=== PATIENT | female | born 1950 | race Caucasian/White ===

== ENCOUNTER 2017-02-07 22:30 | Observation (INO) | payer MEDICARE ==
--- OUTSIDE RECORDS SUMMARY | 2017-02-07 22:33 | XMS | Clinical Summary ---
:1950 Author Organization [facility] Address [address] [place] [address] Phone Care Team Providers Name Role Phone , Primary Care Provider Unavailable Allergies Not on File Current Medications Not on file Active Problems Not on file Social History Tobacco Use Types Packs/Day Years Used Date Never Assessed Sex Assigned at Date Recorded Not on file Last Filed Vital Signs Not on file Plan of Treatment Not on file Results Not on filefrom Last 3 Months
[2017-02-07 23:54] LABS: Troponin I 0.022 ng/mL (< 0.028)
[2017-02-07 23:57] LABS: Acetaminophen Less than 6.0 mcg/mL (10.0-30.0); Salicylate Less than 8.0 mg/dL (15.0-30.0)
[2017-02-08] LABS: Amphetamine Not Detected (NotDetected); Methadone Not Detected (NotDetected); Methamphetamine Not Detected (NotDetected)
[2017-02-08] MEDS ORDERED: Ondansetron ODT 4 MG TAB SL PRN (02:59)
[2017-02-08] MEDS ORDERED: Ondansetron HCl/PF 4 MG/2 ML Vial IVP PRN (02:59)
[2017-02-08 03:43] VITALS: BMI 33.8
[2017-02-08] MEDS ORDERED: Aspirin 325 mg Enteric Coated Tablet PO SCH (09:00)
[2017-02-08] MEDS ORDERED: Dextrose 50% Abboject 50 ML SYRINGE SLOW IVP PRN (09:59)
[2017-02-08] MEDS ORDERED: Loratadine 10 MG TAB PO PRN (09:59)
[2017-02-08] MEDS ORDERED: Famotidine 20 MG TAB PO PRN (09:59)
[2017-02-08] MEDS ORDERED: Dextrose 5% in Water 1,000 ML IV PRN (09:59)
[2017-02-08] MEDS ORDERED: HumaLOG 300 UNITS/3 ML VIAL SC PRN (09:59)
[2017-02-08] MEDS ORDERED: Acetaminophen 325 MG TAB PO PRN (09:59)
[2017-02-08 11:34] VITALS: TEMP 98.7
[2017-02-08] MEDS ORDERED: Metoprolol Tartrate 25 MG TAB PO SCH ×2 (11:45→21:00)
[2017-02-08] MEDS ORDERED: Anastrozole 1 MG TAB PO SCH (11:45)
--- NOTE | 2017-02-08 13:36 | HP ---
CHIEF COMPLAINT: Altered mental state. HISTORY OF PRESENT ILLNESS: This is a 66-year-old pleasant lady who came to the emergency room at [facility] for evaluation of lethargy. The patient's family at that point said that the patient wa s unresponsive. The blood sugar at that time was 120, there were no acute findings on the CT scan o f the head. The patient was transferred out here for further evaluation and treatment during the [facility]. I saw the patient in the morning and she is awake, alert, oriented, and knows what happened on her routine and answers and all questions appropriately. She is feeling fine right now. She does remember that yesterday on the , after she finished her activity at the center she came back bassem e and then took a nap and she vaguely remembers somebody trying to wake her, but she said that she w as sleepy. She right now does not complain of any nausea, vomiting, fever, chills, headache. Compl ains of some left ear discharge on and off. PAST MEDICAL HISTORY: Significant for hypertension, hyperlipidemia, diabetes, neuropathy, depressio n, coronary artery disease, right breast cancer status post mastectomy and radiation, osteoporosis. PAST SURGICAL HISTORY: Cholecystectomy, appendectomy, hysterectomy, x3, status post CABG, lumpectomy, right mastectomy, tonsillectomy. SOCIAL HISTORY: Denies alcohol, tobacco or drugs. Lives in [place] with a niece. ALLERGIES: Allergy to CODEINE, but the patient is able to take Tylenol with codeine and is able to take hydrocodone or [place]. MEDICATIONS: Please see MAR. FAMILY HISTORY: Negative for diabetes and hypertension. REVIEW OF SYSTEMS: Significant for no fever, no chills, altered mental state and no headache, no ap parent hearing loss, some left ear discharge. No chest pain, no shortness of breath, no cough, no n ausea, vomiting, diarrhea, no dysuria, no polyuria, some memory and mood changes. History of deliri um in the past, anxiety in the past, but no neck pain. OBJECTIVE: VITAL SIGNS: The patient's blood pressure is 148/65, afebrile, pulse is 77, respirations 18. GENERAL: The patient is lying in bed right now alert, awake, oriented, in no apparent distress. HEENT: Atraumatic, normocephalic. Pupils equally round, react to light. Extraocular movements int act. Mucous membranes moist. NECK: No JVD. CHEST: Midline scar seen. Respiratory field, breath sounds heard. No rales or rhonchi. HEART: S1, S2. No murmurs or gallops. ABDOMEN: Soft, obese. EXTREMITIES: No cyanosis, clubbing, edema. Distal pulses present. NEUROLOGIC: Alert, awake, oriented. No cranial deficits. No sensorimotor deficits. MUSCULOSKELETAL: The patient complains of left hip pain. LABORATORY DATA: WBC count is 6.3, hemoglobin is 11, bands are elevated at 24%, neutrophils of 82%. Sodium is 142, potassium is 4, creatinine is 1.5, glucose is 120. Lactic acid 0.8. BNP is 322, L DL is 51. Urine shows no signs of infection, nitrate negative, and UDS is positive only for tricyclics. ASSESSMENT AND PLAN: 1. Altered mental state, resolved. Exact etiology unknown. The patient does not complain of any p ain in the left ear, some on and off discharge. Examination did not reveal any signs of otitis medi a. Tympanic membrane was, however, not clearly visualized. We will empirically treat with amoxicil minh. I will speak to the niece and try to get some more history. 2. Left hip pain secondary to left acetabular fracture. The patient has an orthopedic appointment tomorrow. 3. Diabetes. We will put her on insulin sliding scale. 4. Neuropathy. We will continue home medications. 5. History of breast cancer status post mastectomy and radiation, stable. 6. Hypertension, stable. 7. Coronary artery disease status post coronary artery bypass graft, stable. 8. Vague history of anxiety and delirium and psychosis in the past. We will monitor the patient fo r that. I will follow the labs. CT scan of the head was negative. SCDs for deep venous thrombosis prophylaxis.
[2017-02-08 14:07] VITALS: BP 166/77
--- NOTE | 2017-02-08 19:02 | DIS ---
DATE OF ADMISSION: 02/08/2017 DATE OF DISCHARGE: 02/08/2017 ADMITTING DIAGNOSES: 1. Altered mental state, resolved. 2. Chronic infection of the left ear with some on and off discharge. 3. Diabetes. 4. Hypertension. 5. Left acetabular fracture giving left pain. 6. Breast cancer, status post mastectomy and radiation. 7. Coronary artery disease, status post coronary artery bypass grafting. 8. Neuropathy. 9. History of anxiety. DISCHARGE MEDICATIONS: The patient's discharge medications are the same as admitting medications pl us Augmentin 500 mg p.o. b.i.d. for 7 days. BRIEF HOSPITAL COURSE: This is a 66-year-old pleasant lady, who was apparently in her usual state o f health, was brought to [facility] because of altered mental state. They did a CT scan there, which was negative. They decided to transfer the patient to hospital, and during the transfer, the patient wake up, and altered mental state had resolved. I spoke to the niece in detail, and she thought that probably it was like a sleep apneic episode, and she could not wake her up from that. The patient right now was stable overnight. All her labs were good. I evaluated the patient, and because of the transient bandemia and left ear discharge, I am going to treat her with Augmentin for chronic ear infection. The patient is right now medically stable to be discharged and transported back to home with home health. She is asked to follow up with the ENT, orthopedic, PCP as an outpat ient. She is also advised to have a sleep study as an outpatient. She understands all this, the ni deven understands all this. She is asked to come back to the emergency room in case symptoms recur. Total time for this discharge took 35 minutes.
[2017-02-08] MEDS ORDERED: Amoxicillin/Potassium Clav 500 MG TAB PO SCH (21:00)
[2017-02-08] MEDS ORDERED: Atorvastatin Calcium 40 MG TAB PO SCH (21:00)
[2017-02-08] MEDS ORDERED: Aspirin 81 mg Enteric Coated Tablet PO SCH (21:00)
[2017-02-09] MEDS ORDERED: Anastrozole 1 MG TAB PO SCH (09:00)
== END 2017-02-08 13:57 | disposition home or self-care (01) ==
LOC: ERS 22:30 → 2SE 02-08 02:00
PROVIDERS: ADMIT Internal Medicine; ATTEND Internal Medicine
DX: R41.82 Altered mental status, unspecified (principal); H66.92 Otitis media, unspecified, left ear; E11.40 Type 2 diabetes mellitus with diabetic neuropathy, unspecified; I10 Essential (primary) hypertension; S32.402A Unspecified fracture of left acetabulum, initial encounter for closed fracture; I25.10 Atherosclerotic heart disease of native coronary artery without angina pectoris; F41.9 Anxiety disorder, unspecified; F32.9 Major depressive disorder, single episode, unspecified; E78.5 Hyperlipidemia, unspecified; Z88.5 Allergy status to narcotic agent; Z79.4 Long term (current) use of insulin; Z79.899 Other long term (current) drug therapy; Z90.11 Acquired absence of right breast and nipple; Z90.89 Acquired absence of other organs; Z98.890 Other specified postprocedural states; Z95.1 Presence of aortocoronary bypass graft; Z85.3 Personal history of malignant neoplasm of breast; Z92.3 Personal history of irradiation
CPT/HCPCS: 80306; 80307; 82962; 84443; 84484; 93005; 96360; 96361 ×2; 96374; 99285; G0378; 36416; A4216; J0360

== ENCOUNTER 2017-05-25 13:55 | Outpatient (CLI) | payer MEDICARE ==
--- NOTE | 2017-05-25 16:38 | MRI ---
MRI BRAIN WITH AND WITHOUT CONTRAST MRI AIC WITH AND WITHOUT CONTRAST: CLINICAL HISTORY: Asymmetric sensorineural hearing loss. FINDINGS: Ventricular system is normal in size. There is no evidence of acute territorial infarction, intracra nial mass effect, or midline shift. No evidence of pathologic enhancement or mass of either CP angle cistern or along the course of the 7th/8th cranial nerves. Minimal chronic microvascular ischemic d isease is present. Imaged skull base flow voids are patent. There is mild right mastoid fluid. IMPRESSION: 1. No pathologic enhancement or mass along the 7th/8th cranial nerve complex, bilaterally. 2. No acute intracranial abnormality. 3. Minimal chronic microvascular ischemic disease. 4. Mild right mastoid effusion. POS: [facility]
[2017-05-25] MEDS ORDERED: Gadobenate Dimeglumine 529 MG/1 ML (20ML VIAL) ONE (16:49)
== END 2017-05-25 13:56 | disposition home or self-care (01) ==
LOC: MRI 13:55
PROVIDERS: ATTEND Nurse Practitioner Family
DX: H90.5 Unspecified sensorineural hearing loss (principal); H74.8X1 Other specified disorders of right middle ear and mastoid
CPT/HCPCS: 70553; A9579

== ENCOUNTER 2017-06-08 12:54 | Outpatient (CLI) | payer MEDICARE | END 2017-06-08 12:55 | disposition home or self-care (01) | LOC: BICULT 12:54 | PROVIDERS: ATTEND Internal Medicine Nephrology | DX: N18.2 Chronic kidney disease, stage 2 (mild) (principal); N17.9 Acute kidney failure, unspecified; N39.0 Urinary tract infection, site not specified; R10.9 Unspecified abdominal pain | CPT/HCPCS: 76770 ==

== ENCOUNTER 2017-06-22 13:26 | Outpatient (CLI) | payer MEDICARE ==
[2017-06-22 14:46] LABS: #Eosinphils 0.2 thou/uL (0.0-0.7); #Lymphocytes 1.3 thou/uL (1.20-3.40); #Monocytes 0.3 thou/uL (0.11-0.59); #Neutrophils 3.9 thou/uL (1.40-6.50); %Basophils 0.4 % (0.0-1.0); %Eosinophils 3.1 % (0.0-10.0); %Lymphocytes 23.1 % (21.0-51.0); %Monocytes 5.9 % (0.0-10.0); %Neutrophils 67.5 % (42.0-75.0); Hemoglobin 11.8 g/dL (12.0-16.0); Mean Corpuscular HGB CONC 32.2 g/dL (32.0-36.0); Mean Corpuscular Hemoglobin 29.1 pg (27.0-31.0); Mean Corpuscular Volume 90.2 fl (81.0-99.0); Mean Platelet Volume 6.5 fL (7.4-10.4); Platelet Count 267 thou/uL (130-400); RBC Distribution Width 12.7 % (11.5-14.5); Red Blood Cell (RBC) Count 4.06 mill/uL (4.20-5.40); White Blood Cell (WBC) Count 5.7 thou/uL (4.8-10.8)
[2017-06-22 14:52] LABS: PTT 34.9 SEC (22.9-36.1)
[2017-06-22 15:08] LABS: ALT (SGPT) 12 U/L (8-55); AST (SGOT) 14 U/L (5-34); Albumin 3.9 g/dL (3.4-4.8); Alkaline Phosphatase 57 U/L (40-150); Anion Gap 15 mmol/L (10-20); BUN (Urea Nitrogen) 24 mg/dL (9.8-20.1); Bilirubin, Total 0.4 mg/dL (0.2-1.2); Calc. Creatinine Clearance 0 mL/min (70-130); Calcium 9.5 mg/dL (7.8-10.44); Carbon Dioxide 27 mmol/L (23-31); Chloride 103 mmol/L (98-107); Estimated GFR-MDRD 45; Globulin 2.8 g/dL (2.4-3.5); Glucose 90 mg/dL (80-115); Protein, Total 6.7 g/dL (6.0-8.3); Sodium 141 mmol/L (136-145)
--- NOTE | 2017-06-22 21:03 | EKG ---
Test Reason : Blood Pressure : / mmHG Vent. Rate : 077 BPM Atrial Rate : 077 BPM P-R Int : 156 ms QRS Dur : 086 ms QT Int : 398 ms P-R-T Axes : 037 -21 006 degrees QTc Int : 450 ms Normal sinus rhythm Minimal voltage criteria for LVH, may be normal variant Septal infarct (cited on or before 06-MAY-2016) Abnormal ECG When compared with ECG of 07-FEB-2017 23:29, T wave inversion no longer evident in Lateral leads Confirmed by ALAINA CAMEJO ([id number]) on 06/22/2017 9:03:07 PM Referred By: CRUZ Confirmed By:ALAINA CAMEJO
== END 2017-06-22 13:27 | disposition home or self-care (01) ==
LOC: LABBT 13:26
PROVIDERS: ATTEND Internal Medicine Cardiovascular Disease
DX: Z01.818 Encounter for other preprocedural examination (principal); I25.119 Atherosclerotic heart disease of native coronary artery with unspecified angina pectoris
CPT/HCPCS: 80053; 85025; 85610; 85730; 93005; 93010

== ENCOUNTER 2017-06-24 05:50 | Day surgery (SDC) | payer MEDICARE ==
[2017-06-22 13:41] VITALS: BMI 31.4
[2017-06-24 07:35] LABS: Cardiac Risk 3.1 (Less than 4.5)
[2017-06-24] MEDS ORDERED: Fentanyl 100 MCG/2 ML VIAL ONE (07:38)
[2017-06-24] MEDS ORDERED: Midazolam HCl 2 mg/2 ml Vial ONE (07:38)
[2017-06-24] MEDS ORDERED: Iopamidol 370 76% 50 ML VIAL FS ONE (17:04)
[2017-06-24] MEDS ORDERED: Iopamidol 370 76% 100 ML VIAL ONE (17:04)
== END 2017-06-24 12:38 | disposition home or self-care (01) ==
LOC: CCL 05:50
PROVIDERS: ATTEND Internal Medicine Cardiovascular Disease
DX: I25.119 Atherosclerotic heart disease of native coronary artery with unspecified angina pectoris (principal); E11.22 Type 2 diabetes mellitus with diabetic chronic kidney disease; I13.0 Hypertensive heart and chronic kidney disease with heart failure and stage 1 through stage 4 chronic kidney disease, or unspecified chronic kidney disease; N18.3 Chronic kidney disease, stage 3 (moderate); I50.30 Unspecified diastolic (congestive) heart failure; E78.5 Hyperlipidemia, unspecified; G47.33 Obstructive sleep apnea (adult) (pediatric); M81.0 Age-related osteoporosis without current pathological fracture; F31.9 Bipolar disorder, unspecified; E11.40 Type 2 diabetes mellitus with diabetic neuropathy, unspecified; Z99.89 Dependence on other enabling machines and devices; Z79.4 Long term (current) use of insulin; Z79.82 Long term (current) use of aspirin; Z79.899 Other long term (current) drug therapy; Z88.5 Allergy status to narcotic agent; Z95.1 Presence of aortocoronary bypass graft; Z90.11 Acquired absence of right breast and nipple; Z90.49 Acquired absence of other specified parts of digestive tract; Z90.710 Acquired absence of both cervix and uterus; Z90.89 Acquired absence of other organs; Z98.890 Other specified postprocedural states; Z98.891 History of uterine scar from previous surgery; Z92.3 Personal history of irradiation; Z85.3 Personal history of malignant neoplasm of breast
CPT/HCPCS: 80061; 82962; 93455; C1769; 36416; 99152; 99153; J1644; J2250; J3010

== ENCOUNTER 2017-07-14 06:27 | Day surgery (SDC) | payer MEDICARE ==
[2017-07-13 14:10] VITALS: BMI 32.0
[~2017-07-14 06:27] MED LIST: Cyclopentolate 1% Opth Drop 2 ML BOT FS SCH; EPINEPHrine 0.3 MG, Dextrose 50% 3 ML in Ophthalmic Irrigation Solution 500 ML FS SCH; Phenylephrine 2.5% Ophth Soln 5 ML BOT FS SCH
[2017-07-14] MEDS ORDERED: Cyclopentolate 1% Opth Drop 2 ML BOT ONE ×2 (06:30)
[2017-07-14] MEDS ORDERED: Phenylephrine 2.5% Ophth Soln 5 ML BOT ONE (06:31)
[2017-07-14] MEDS ORDERED: Fentanyl 100 MCG/2 ML VIAL ONE (07:52)
[2017-07-14] MEDS ORDERED: Midazolam HCl 2 mg/2 ml Vial ONE (07:54)
[2017-07-14] MEDS ORDERED: Diprivan 20 ML ONE (07:55)
--- NOTE | 2017-07-14 09:57 | OP ---
DATE OF PROCEDURE: 07/14/2017 PREOPERATIVE DIAGNOSIS: Epiretinal membrane, vitreous hemorrhage, left eye. POSTOPERATIVE DIAGNOSIS: Epiretinal membrane, vitreous hemorrhage, left eye. PROCEDURE: Pars plana vitrectomy and membrane peel, panretinal photocoagulation, left eye. SURGEON: Dr. All Fagan ANESTHESIA: Local with monitored anesthesia care. COMPLICATIONS: None. PROCEDURE IN DETAIL: The patient was identified in the preoperative holding area. Appropriate conse nt for planned surgical procedure on the left eye been obtained. The patient was transported to the operative suite. Appropriate monitoring was established. Local anesthesia was obtained using retrob ulbar and modified Van Lint lid block using 50:50 mixture of 4% lidocaine, 0.75% bupivacaine. The pa tient was prepped and draped in the usual sterile manner for ophthalmic surgery on the left eye. Lid speculum was placed in the left eye. The 25-gauge trocars placed in conjunctiva and sclera supratem porally, inferotemporally, and supranasally. Infusion line was placed inferotemporally. Light pipe and vitreous cutter were inserted into the eye. Core vitrectomy was performed. Attention was turned to the posterior pole where there was a stalk of proliferans coming up from the nerve. This was pee led from the macula retinal surface and removed from the eye. Other residual membranes were removed. Olvera retinal photocoagulation was placed into all non-macular areas of the retina. No holes, breaks or tears were identified. Trocars were removed and eye was noted to retain pressure well. Retrobul bar Kenalog and specimens placed. Atropine and antibiotic ointment were placed, and the eye was patc hed and shielded. The patient was taken to the postoperative recovery unit in good condition having suffered no immediate complications. DISCHARGE INSTRUCTIONS: The patient was instructed to keep patch and shield on, avoid lifting or anisha ding, and follow up in the morning with Dr. Fagan.
== END 2017-07-14 09:30 | disposition home or self-care (01) ==
LOC: SDC 06:27
PROVIDERS: ATTEND Ophthalmology Retina Specialist
PROC: 08T53ZZ Resection of Left Vitreous, Percutaneous Approach (ICD-10-PCS; principal; 2017-07-14)
PROC: 08QF3ZZ Repair Left Retina, Percutaneous Approach (ICD-10-PCS; 2017-07-14)
PROC: 08NF3ZZ Release Left Retina, Percutaneous Approach (ICD-10-PCS; 2017-07-14)
DX: H43.12 Vitreous hemorrhage, left eye (principal); H35.372 Puckering of macula, left eye; Z88.5 Allergy status to narcotic agent; Z79.4 Long term (current) use of insulin; Z79.83 Long term (current) use of bisphosphonates; Z79.82 Long term (current) use of aspirin; Z79.899 Other long term (current) drug therapy
CPT/HCPCS: 36416; J0171; J2250; J2704; J3010

== ENCOUNTER 2017-11-16 23:37 | Observation (INO) | payer MEDICARE ==
[~2017-11-16 23:37] MED LIST changes: -Cyclopentolate 1% Opth Drop 2 ML BOT FS SCH; -EPINEPHrine 0.3 MG, Dextrose 50% 3 ML in Ophthalmic Irrigation Solution 500 ML FS SCH; +ISOVUE-370 76%-LOCM 1 ML ONE; -Phenylephrine 2.5% Ophth Soln 5 ML BOT FS SCH
[2017-11-17 01:50] LABS: Troponin I 0.011 ng/mL (< 0.028)
[2017-11-17] MEDS ORDERED: Acetaminophen 325 MG TAB PO PRN (03:28)
[2017-11-17] MEDS ORDERED: Ondansetron HCl/PF 4 MG/2 ML Vial IVP PRN (03:28)
[2017-11-17] MEDS ORDERED: Lorazepam 1 MG TAB PO PRN (03:29)
[2017-11-17] MEDS ORDERED: Furosemide 20 MG TAB PO SCH (03:30)
[2017-11-17] MEDS ORDERED: guaiFENesin ER 600 MG TAB PO SCH (03:30)
[2017-11-17] MEDS ORDERED: HYDROcodone/Acetaminophen 10/325 mg Tablet PO SCH (03:30)
[2017-11-17] MEDS ORDERED: tiZANidine HCl 4 MG TAB PO SCH (03:30)
[2017-11-17] MEDS ORDERED: cloNIDine 0.1 MG TAB PO SCH (03:30)
[2017-11-17] MEDS ORDERED: Zolpidem Tartrate 5 MG TAB PO SCH (03:30)
[2017-11-17 04:47] LABS: #Basophils 0.1 thou/uL (0.0-0.2); #Eosinphils 0.2 thou/uL (0.0-0.7); #Lymphocytes 1.3 thou/uL (1.20-3.40); #Monocytes 0.5 thou/uL (0.11-0.59); #Neutrophils 2.7 thou/uL (1.40-6.50); %Basophils 1.1 % (0.0-1.0); %Eosinophils 4.5 % (0.0-10.0); %Monocytes 10.1 % (0.0-10.0); %Neutrophils 57.3 % (42.0-75.0); Hemoglobin 10.5 g/dL (12.0-16.0); Mean Corpuscular HGB CONC 33.9 g/dL (32.0-36.0); Mean Corpuscular Hemoglobin 30.7 pg (27.0-31.0); Mean Corpuscular Volume 90.4 fL (78.0-98.0); Mean Platelet Volume 6.1 fL (7.4-10.4); Platelet Count 172 thou/uL (130-400); RBC Distribution Width 11.8 % (11.5-14.5); Red Blood Cell (RBC) Count 3.42 mill/uL (4.20-5.40); White Blood Cell (WBC) Count 4.7 thou/uL (4.8-10.8)
[2017-11-17 05:05] LABS: Anion Gap 12 mmol/L (10-20); BUN (Urea Nitrogen) 43 mg/dL (9.8-20.1); Calc. Creatinine Clearance 0 mL/min (70-130); Calcium 9.4 mg/dL (7.8-10.44); Carbon Dioxide 29 mmol/L (23-31); Chloride 104 mmol/L (98-107); Estimated GFR-MDRD 36; Glucose 111 mg/dL (80-115); Potassium 4.6 mmol/L (3.5-5.1); Sodium 140 mmol/L (136-145); Troponin I 0.014 ng/mL (< 0.028)
[2017-11-17 07:41] LABS: Troponin I Less than 0.010 ng/mL (< 0.028)
[2017-11-17 08:02] VITALS: BMI 35.4
--- NOTE | 2017-11-17 08:07 | ULT ---
CAROTID DUPLEX SONOGRAM: HISTORY: Syncope. Vascular disease. FINDINGS: RIGHT: Scattered plaque. Color and spectral Doppler evaluation, peak systolic velocity of 82 cm/s, and IC t o CC ratio 1.3 suggests no hemodynamically significant stenosis within the extracranial right ICA. A ntegrade flow within the vertebral artery. LEFT: Scattered plaque. Color and spectral Doppler evaluation, peak systolic velocity of 89 cm/s, and IC t o CC ratio of 1.3 suggests no hemodynamically significant stenosis within the extracranial left ICA. Antegrade flow within the vertebral artery. IMPRESSION: Atherosclerosis. No sonographic evidence of significant extracranial internal carotid artery stenosi s. POS: [facility]
--- NOTE | 2017-11-17 08:36 | CT ---
PRELIMINARY REPORT/[facility]/EMERGENTY AFTER-HOURS PROCEDURE CT Angiography Chest With Intravenous Contrast CLINICAL HISTORY: 67 years old, female; Signs and symptoms; Other: Syncope; Prior surgery; Patient HX: Er8; 67f present s for the evaluation of syncope. Patient was sitting at rest and syncopized for 3-5 minutes without p rodromal event. Patient recently had aicd placed on tuesday. Denies chest pain and SOB. TECHNIQUE: Axial computed tomographic angiography images of the chest with intravenous contrast using CT angiogr aphy protocol. MIP reconstructed images were created and reviewed. COMPARISON: No relevant prior studies available. FINDINGS: Tubes, lines and devices: There is a left chest wall pacemaker device. Pulmonary arteries: No visible acute pulmonary embolism. Aorta: Normal. No aortic aneurysm. No aortic dissection. Lungs: There is likely pleural and parenchymal scarring in the right upper lobe anteriorly and also i nvolving the right middle lobe. There is additional bibasilar atelectatic change or scarring, but can not exclude a component of pneumonitis in the left lower lobe base. Pleural space: Normal. No pneumothorax. No pleural effusion. Heart: There are postoperative changes of prior cardiac surgery. Bones/joints: There are degenerative changes of the spine. There is likely chronic compression fractu re involving the T11 vertebral body. Soft tissues: Unremarkable. Lymph nodes: Unremarkable. No enlarged lymph nodes. Adrenals: There is a likely lipid rich left adrenal adenoma measuring 1.3 cm diameter. IMPRESSION: 1. There is likely pleural and parenchymal scarring in the right upper lobe anteriorly and also invol ving the right middle lobe. There is additional bibasilar atelectatic change or scarring, but cannot exclude a component of pneumonitis in the left lower lobe base. 2. No visible acute pulmonary embolism. Thank you for allowing us to participate in the care of your patient. Dictated and Authenticated by: Orion Lorenzo MD 11/17/2017 1:29 AM Central Time ([place] & [place]) FINAL REPORT CT ARTERIOGRAM CHEST WITH IV CONTRAST AND 3D MIP IMAGING PERFORMED ON AN EMERGENCY BASIS: Date: 11/17/17 Time: 0104 hours HISTORY: Syncope. Dyspnea. COMPARISON: 01/06/17. FINDINGS: Findings agree with the preliminary report by Antoinette. No CT evidence of pulmonary embolus. Scarring at the left base has progressed slightly since the prior exam. Other chronic-type findings are stable. L eft adrenal adenoma is partially visualized. POS: [facility]
[2017-11-17] MEDS ORDERED: Non-Formulary Item 1 EACH (Insulin Detemir 100 Units/Ml [Levemir] 20 UNITS) SQ SCH (09:00)
[2017-11-17] MEDS ORDERED: Insulin Glargine 20 UNITS in Pre-Filled Syringe 1 EACH SC SCH (09:00)
[2017-11-17] MEDS: Anastrozole 1 MG TAB PO SCH (10:29)
[2017-11-17] MEDS: Docusate 100 MG CAP PO SCH (10:29)
[2017-11-17] MEDS: Aspirin 81 mg Enteric Coated Tablet PO SCH (10:29)
[2017-11-17] MEDS: Gabapentin 400 MG CAP PO SCH ×3 (10:30→21:33)
[2017-11-17] MEDS: Enoxaparin Sodium 40 MG/0.4 ML SYRINGE SC SCH (10:53)
[2017-11-17] MEDS: Sodium Chloride 0.9% 1,000 ML IV SCH (10:56)
[2017-11-17] MEDS: Ferrous Sulfate 325 MG TAB PO SCH (12:20)
[2017-11-17] MEDS: HYDROcodone/Acetaminophen 10/325 mg Tablet PO PRN ×3 (12:44→23:23)
[2017-11-17] MEDS ORDERED: Non-Formulary Item 1 EACH (Cephalexin [Keflex] 500 MG) PO SCH (13:00)
--- NOTE | 2017-11-17 13:16 | HP ---
REASON FOR ADMISSION: Syncope. HISTORY OF PRESENT ILLNESS: The patient states she was sitting and watching TV for almost an hour. She tried to get up to go eat dinner when she apparently passed out for 10-15 minutes. When she woke up, EMS were all over the place. This morning, she is feeling weak. No complaints of chest pain, p alpitation, PND or orthopnea. No complaints of fever, cough, or expectoration. She states she had A ICD placed on Tuesday by Dr. Fischer for low EF of 25%-30%. No complaints of diarrhea. She normally use s a walker to ambulate inside the house and uses wheelchair to go beyond that. She lives with her ni deven. PAST MEDICAL AND SURGICAL HISTORY: History of coronary artery disease with prior CABG x3 done in 201 2 at [facility] in [place], AICD placed on Tuesday by Dr. Fischer for EF of 25%-32%, hyp ertension, history of breast cancer with right mastectomy, diabetes mellitus type 2, chronic anemia, CKD stage 2-3. CURRENT MEDICATIONS: Arimidex 1 mg p.o. daily, aspirin 81 mg p.o. daily, Lipitor 40 mg p.o. at bedti me, Keflex 500 mg p.o. 4 times daily, Flexeril 10 mg p.o. at bedtime, Cymbalta 60 mg p.o. daily, Lasi x 40 mg p.o. daily, gabapentin 800 mg p.o. 3 times daily, [place] 10/325 mg 1 tab p.o. q.4 hours p.r.n. , hydroxyzine 50 mg p.o. at bedtime, Levemir 25 units subcu daily and 20 units subcu at bedtime, Topr ol-XL 25 mg at bedtime, Protonix 40 mg daily, Risperdal 1 mg p.o. at bedtime, Janumet 1 tab twice lance ly. ALLERGIES: CODEINE. PERSONAL HISTORY: Does not abuse alcohol or drugs. No history of smoking. FAMILY HISTORY: Mother of COPD and its complications at the age of 54 years. She does not know much about her father. Patient has 2 grown boys. She lives with her niece. CODE STATUS: FULL. Power of collections attorney, Ms. Marylin Clements and that is her niece. REVIEW OF SYSTEMS: The following complete review of systems was negative, unless otherwise mentioned in the HPI or below: Constitutional: Weight loss or gain, ability to conduct usual activities. Skin: Rash, itching. Eyes: Double vision, pain. ENT/Mouth: Nose bleeding, neck stiffness, pain, tenderness. Cardiovascular: Palpitations, dyspnea on exertion, orthopnea. Respiratory: Shortness of breath, wheezing, cough, hemoptysis, fever or night sweats. Gastrointestinal: Poor appetite, abdominal pain, heartburn, nausea, vomiting, constipation, or diarr hea. Genitourinary: Urgency, frequency, dysuria, nocturia. Musculoskeletal: Pain, swelling. Neurologic/Psychiatric: Anxiety, depression. Allergy/Immunologic: Skin rash, bleeding tendency. PHYSICAL EXAMINATION: GENERAL: The patient is a 67-year-old female who is currently not in any acute distress. VITAL SIGNS: Blood pressure 164/70, pulse 74 per minute, respiratory rate 16 per minute, temperature 97.6 degrees Fahrenheit, saturating 96% on room air. NECK: Supple, no elevated JVD. HEENT: Eyes, extraocular muscles intact. Pupils reacting to light. Oral cavity mucous membranes ar e dry. No exudates or congestion. CARDIOVASCULAR: S1, S2 heard, regular rhythm. RESPIRATORY: Air entry 2+ bilateral. No rales or rhonchi. ABDOMEN: Soft, bowel sounds heard. No tenderness, rigidity or guarding. EXTREMITIES: No peripheral edema or calf tenderness. VASCULAR SYSTEM: Peripheral pulses 1+ bilateral, no ischemic ulcerations or gangrene. CENTRAL NERVOUS SYSTEM: No gross focal deficits noted. Patient is alert, awake, oriented well. PSYCHIATRIC: The patient's mood is euthymic. No hallucinations or delusions. LABORATORY DATA AND X-RAY FINDINGS: Electrolytes are stable. BUN 43, creatinine 1.4. Troponin x3 i s negative. EKG done shows normal sinus rhythm at 78 beats per minute with signs of mild LVH, old Q- waves seen in V1 and V2. White count of 4.7, H&H is 10 and 31, platelet count 172 with 57% neutrophi ls. CT angio chest done shows no evidence of PE. There are chronic changes seen in the lungs. Ultr asound carotid done shows no hemodynamically significant stenosis. CLINICAL IMPRESSION AND PLAN: The patient will be under observation on telemetry for syncope. We wi ll obtain orthostatic blood pressures. The patient has had recent AICD placed on Tuesday. This is a Medtronic device and will have a printout. I have discussed her findings with Dr. Aaliyah Boyd as amira florence. We will continue her Keflex, post-AICD. We also continue all her home medications including Arim idex, Abilify, aspirin, Lipitor, Cymbalta, ferrous sulfate, Neurontin, [place], insulin with Lantus, To prol-XL as before. She will also be gently hydrated with normal saline at 70 mL per hour. We will h old off on diuretics for now. We will continue to closely monitor her on telemetry. Likely again he r syncope given the description of when she passed out appears to be due to orthostasis. We will con firm the same on the floor.
[2017-11-17] MEDS: Cephalexin 250 MG CAP PO SCH ×3 (15:36→21:33)
[2017-11-17] MEDS ORDERED: Atorvastatin Calcium 40 MG TAB PO SCH (21:00)
[2017-11-17] MEDS ORDERED: Non-Formulary Item 1 EACH (Insulin Detemir 100 Units/Ml [Levemir] 15 UNITS) SC SCH (21:00)
[2017-11-17] MEDS ORDERED: Insulin Glargine 15 UNITS in Pre-Filled Syringe 1 EACH SC SCH (21:00)
[2017-11-17] MEDS ORDERED: Aripiprazole 10 MG TAB PO SCH (21:00)
[2017-11-18] MEDS ORDERED: Dextrose 50% Abboject 50 ML SYRINGE IVP PRN (00:17)
[2017-11-18] MEDS ORDERED: Dextrose 5% in Water 1,000 ML IV PRN (00:17)
[2017-11-18] MEDS ORDERED: HumaLOG 300 UNITS/3 ML VIAL SC PRN (00:17)
[2017-11-18] MEDS: Sodium Chloride 0.9% 1,000 ML IV SCH (01:20)
--- NOTE | 2017-11-18 01:34 | CON ---
DATE OF CONSULTATION: 11/17/2017 REQUESTING PHYSICIAN: Dr. Sandi Mayorga I am seeing Ms. Dee at our [facility] telemetry floor as electrophysiology consult. PROBLEMS: 1. New syncopal spell. A. Orthostatic hypotension with a systolic blood pressure 86 standing, 141/78 lying down. B. No arrhythmia on ICD interrogation. 2. Chronic systolic congestive heart failure. A. Ischemic cardiomyopathy. B. History of inferior myocardial infarction in the past. C. History of coronary artery grafting surgery. D. Left heart catheterization in 06/24/2017 shows occluded BARRERA to LAD and patent circumflex. E. 2D echo from 09/14/2017 with an EF of 30%-35%, mild TR, mild MR. 3. Status post prophylactic ICD implant with Medtronic Visia AF device on 11/11. 4. History of breast cancer with right mastectomy. 5. Risk factors including type 2 diabetes, chronic kidney disease, elevated BMI , chronic anemia. ALLERGIES: CODEINE. MEDICATIONS AT HOME: Included: Arimidex, aspirin, Lipitor, Keflex, Flexeril, Cymbalta, Lasix, gabapentin, [place] , hydroxyzine, Levemir, Toprol-XL, Protonix,, Risperdal, Janumet. SUBJECTIVE: Ms. Dee is here due to a syncopal spell. This occurred while she was watching TV almost for an hour. She was out for 10-15 minutes and EMS woke her up. She felt weak this morning. She denies chest pains, palpitations or ICD shocks. No fever, chills, cough or burning urination. No PND or orthopnea or fluid overload. REVIEW OF SYSTEMS: Twelve-point system otherwise unremarkable. PAST MEDICAL HISTORY: As above. SOCIAL HISTORY: She denies smoking, ETOH or drug abuse. PAST SURGICAL HISTORY: Recent ICD implant, Mastectomy FAMILY HISTORY: Significant for mother dying of COPD at age 54. She has 2 grown boys, lives with her niece. OBJECTIVE: VITAL SIGNS: Blood pressure is 141/78 supine, 86/54 standing up, heart rate 81 , respiration 16, temperature 98.6 degrees Fahrenheit. GENERAL: She is alert and oriented elderly woman in no apparent distress. NECK: Supple. Jugular veins not distended. CHEST: Coarse without crackles. CARDIAC: Heart sounds are regular to rate and rhythm. No murmur or gallop. PMI is nonpalpable. Left precordial ICD insertion site is well healed. ABDOMEN: Benign. Bowel sounds positive. EXTREMITIES: Lower extremities without edema, clubbing or cyanosis. Pulses are adequate. NEUROLOGIC: Patient is nonfocal. MUSCULOSKELETAL: No joint swelling or deformities. SKIN: Without rash. DATABASE: EKG reviewed revealing sinus rhythm, no ST-T changes. ICD interrogation reveals a Medtronic Visia AF MRI, single chamber ICD with batteries at the beginning of life. Lead parameters are adequate. The patient had no significant arrhythmias. neither on the treatment zone over 170 or the monitor zone at 150 beats per minute zone and above.Also, there is no evidence of tamponade on a CT scan, which I reviewed. LABORATORY DATA: White count 4.7, hemoglobin 10.5, platelet count is 172. Sodium 140, potassium 4.6, BUN is 43, creatinine 1.44. The chest CT shows pleural scarring. No pleural effusion, no pneumothorax and pericardial space without significant effusion. ASSESSMENT AND PLAN: Ms. Dee is a pleasant 67-year-old woman with prior history of congestive heart failure and cardiomyopathy, reduced LVEF or so. She presented with syncopal spell, albeit apart from severe orthostatic hypotension. No other issues were found. Her ICD interrogation is free of arrhythmias. She is down to 150 beats per minute. I would recommend gentle rehydration, also reviewing her medical regimen for in particular Flexeril and Risperdal has been associated with hypertension also naturally betablockers as well, although it is likely beneficial for her heart failure. I would continue antibiotics as before and 1-week wound check is requested as planned. Thank you again for allowing me to participate in the care of this patient. TARA
[2017-11-18] MEDS ORDERED: Ferrous Sulfate 325 MG TAB PO SCH (08:00)
[2017-11-18] MEDS: Enoxaparin Sodium 40 MG/0.4 ML SYRINGE SC SCH (08:45)
[2017-11-18] MEDS: Aspirin 81 mg Enteric Coated Tablet PO SCH (08:46)
[2017-11-18] MEDS: HYDROcodone/Acetaminophen 10/325 mg Tablet PO PRN ×2 (08:47→17:50)
[2017-11-18] MEDS: Gabapentin 400 MG CAP PO SCH ×2 (08:50→17:50)
[2017-11-18] MEDS: Anastrozole 1 MG TAB PO SCH (08:50)
[2017-11-18] MEDS: Docusate 100 MG CAP PO SCH (08:51)
[2017-11-18] MEDS: Cephalexin 250 MG CAP PO SCH ×3 (08:55→19:25)
[2017-11-18] MEDS: Ferrous Sulfate 325 MG TAB PO SCH (08:55)
[2017-11-18] MEDS ORDERED: Insulin Glargine 25 UNITS in Pre-Filled Syringe 1 EACH SC SCH (09:00)
[2017-11-18] MEDS ORDERED: Furosemide 40 MG TAB PO SCH (09:00)
[2017-11-18] MEDS ORDERED: DULoxetine 60 MG CAP PO SCH (09:00)
--- NOTE | 2017-11-18 10:26 | PDOC.PN ---
- Subjective Encounter Start Date: 11/18/17 Encounter Start Time: 09:00 Subjective: no chest pain or dizziness or sob -: feels better - Objective Resuscitation Status: Resuscitation Status FULL:Full Resuscitation MAR Reviewed: Yes Vital Signs & Weight: Vital Signs (12 hours) Temp Pulse Resp BP BP Pulse Ox 11/18/17 08:38 142/88 H 11/18/17 07:54 98.5 F 78 20 219/105 H 96 11/18/17 04:00 97.5 F L 78 18 174/88 H 97 11/17/17 23:50 98.3 F 70 18 156/74 H 95 Weight Weight 188 lb 4.8 oz I&O: 11/17/17 11/18/17 11/19/17 06:59 06:59 06:59 Intake Total 2430 Balance 2430 Result Diagrams: 11/17/17 04:30 11/17/17 04:30 Additional Labs: Accuchecks 11/18/17 11/17/17 11/17/17 05:53 20:28 16:25 POC Glucose 156 H 252 H 187 H 11/17/17 11/17/17 11:05 06:22 POC Glucose 182 H 121 H Phys Exam - Physical Examination HEENT: PERRLA, moist MMs Neck: no JVD, supple Respiratory: no wheezing, no rales Cardiovascular: RRR, no significant murmur Gastrointestinal: soft, non-tender, positive bowel sounds Musculoskeletal: no edema, pulses present Neurological: non-focal, moves all 4 limbs Psychiatric: normal affect, A&O x 3 Dx/Plan (1) Syncope Code(s): R55 - SYNCOPE AND COLLAPSE Status: Resolved (2) CAD (coronary artery disease) Code(s): I25.10 - ATHSCL HEART DISEASE OF [place] CORONARY ARTERY W/O ANG PCTRS Status: Chronic Qualifiers: Coronary Disease-Associated Artery/Lesion type: bypass graft [place] vs. transplanted heart: [place] heart Associated angina: without angina Qualified Code(s): I25.810 - Atherosclerosis of coronary artery bypass graft(s) without angina pectoris (3) Cardiomyopathy Code(s): I42.9 - CARDIOMYOPATHY, UNSPECIFIED Status: Chronic Qualifiers: Cardiomyopathy type: unspecified Qualified Code(s): I42.9 - Cardiomyopathy , unspecified Comment: ef of 35% (4) h/o aicd Status: Acute (5) DM type 2 (diabetes mellitus, type 2) Status: Chronic Qualifiers: Diabetes mellitus fdc insulin use: with fdc use Diabetes mellitus complication status: with unspecified complications Qualified Code(s) : E11.8 - Type 2 diabetes mellitus with unspecified complications; Z79.4 - medical terminologist (current) use of insulin; Z79.4 - medical terminologist (current) use of insulin; Z79.4 - medical terminologist (current) use of insulin; Z79.4 - medical terminologist (current) use of insulin (6) Anemia Code(s): D64.9 - ANEMIA, UNSPECIFIED Status: Chronic Qualifiers: Anemia type: unspecified type (7) Dyslipidemia Code(s): E78.5 - HYPERLIPIDEMIA, UNSPECIFIED Status: Chronic (8) Obesity (BMI 30.0-34.9) Code(s): E66.9 - OBESITY, UNSPECIFIED Status: Chronic (9) Orthostatic hypotension Code(s): I95.1 - ORTHOSTATIC HYPOTENSION Status: Resolved - Plan hemostable -: ambulate with rw in hallway as tolerated -: may dc home after above * .
[2017-11-18 12:01] VITALS: BP 164/82; TEMP 98.6
--- NOTE | 2017-11-18 17:03 | PDOC.CTH ---
Cardiology Progress Note - Subjective EP progress note: Patient seen and evaluated. She is doing fairly well and is ready for DC later today. No new cardiac concerns or complaints. - Objective Vital Signs Temp Pulse Resp BP BP Pulse Ox 11/18/17 12:00 98.6 F 82 18 164/82 H 95 11/18/17 08:38 142/88 H 11/18/17 08:30 98.5 F 78 20 11/18/17 07:54 98.5 F 78 20 219/105 H 96 Weight 188 lb 4.8 oz 11/17/17 11/18/17 11/19/17 06:59 06:59 06:59 Intake Total 2430 Balance 2430 - Physical Examination General/Neuro: alert & oriented x3, NAD Neck: no JVD present Lungs: unlabored respirations Heart: RRR Abdomen: NT/ND, soft - Telemetry Telemetry Rhythm: NSR - Labs Result Diagrams: 11/17/17 04:30 11/17/17 04:30 Troponin/CKMB Troponin I Less than 0.010 ng/mL (< 0.028) 11/17/17 07:05 - Assessment/Plan 1. Orthostatic hypotension causing syncopal episode 2. ICD insitu, normal operation, no arrhythmias detected 3. CHF. ICM. OK for DC by EP. Wound check appt next week as already scheduled.
[2017-11-18] MEDS ORDERED: Insulin Glargine 20 UNITS in Pre-Filled Syringe 1 EACH SC SCH (21:00)
--- NOTE | 2017-11-19 00:49 | DIS ---
DATE OF ADMISSION: 11/17/2017 DATE OF DISCHARGE: 11/18/2017 DISCHARGE DISPOSITION: To home. PRIMARY DISCHARGE DIAGNOSIS: Syncope secondary to orthostasis, resolved. SECONDARY DISCHARGE DIAGNOSES: Coronary artery disease, history of cardiomyopathy with ejection frac tion of around 32-35%, recent automated implantable cardioverter defibrillator, diabetes mellitus typ e 2, chronic anemia, dyslipidemia. PROCEDURES DONE DURING HOSPITALIZATION: Patient had carotid Doppler done, which did not reveal any s ignificant stenosis. CT angio chest shows no evidence of PE. There are nonspecific findings seen. H and H 10 and 31, platelet count 172,000, BUN 43, creatinine 1.4, serum bicarbonate 29. DISCHARGE MEDICATIONS: Aspirin 81 mg p.o. daily, Arimidex 1 mg p.o. daily, Keflex 500 mg p.o. 4 time s daily for a recent AICD placement, Lipitor 40 mg p.o. at bedtime, Cymbalta 60 mg p.o. daily, Flexer il 10 mg p.o. at bedtime, Lasix 40 mg p.o. daily, gabapentin 800 mg p.o. 3 times daily, [place] p.r.n. for pain, Levemir 25 units subcu a.m. and 20 units subcu at bedtime, Toprol-XL 25 mg p.o. at bedtime, Protonix 40 mg p.o. daily, Risperdal 1 mg p.o. at bedtime, Janumet 1 tab twice daily. ALLERGIES: CODEINE. INPATIENT CONSULT: Dr. Aaliyah Boyd for Electrophysiology. DISCHARGE PLAN: Patient is to follow up with Dr. Fischer as advised primary care physician in 1 week. She also needs to check blood pressure and pulse twice daily and record to follow up with primary car e physician in 1-2 weeks. BRIEF COURSE DURING HOSPITALIZATION: Patient initially was brought to emergency room after she lost consciousness and syncopized while she tried to get up from a couch. She has also had recent AICD acacia castillo on Tuesday for low ejection fraction. In view of this history, the patient was placed on telemetr y. Orthostatic blood pressures were obtained and was positive. She was given a liter and a half of fluids. She has had her AICD interrogated by [facility] medical technicians, which was evaluated by Dr. Aaliyah woods as well. There were no arrhythmias seen on the AICD printout. She remained hemodynamically st able. She will be shortly discharged home if she is able to ambulate with a rolling walker on the vt oor. She is currently asymptomatic this morning. Please see a [id number] documentation on [facility] for the day of discharge.
--- NOTE | 2017-11-19 15:51 | EKG ---
Test Reason : Blood Pressure : / mmHG Vent. Rate : 078 BPM Atrial Rate : 078 BPM P-R Int : 168 ms QRS Dur : 092 ms QT Int : 380 ms P-R-T Axes : 019 -23 074 degrees QTc Int : 433 ms Normal sinus rhythm Moderate voltage criteria for LVH, may be normal variant Cannot rule out Septal infarct , age undetermined Abnormal ECG Confirmed by KANIKA NORIEGA, DONTAE ([id number]), subeditor ALLEN ESPARZA ([id number]) on 11/19/2017 3:50:34 PM Referred By: Confirmed By:DONTAE BOUDREAUX MD
== END 2017-11-18 17:56 | disposition home or self-care (01) ==
LOC: ERS 23:37 → 2SE 11-17 03:27
PROVIDERS: ADMIT Hospitalist; ATTEND Hospitalist
DX: I95.1 Orthostatic hypotension (principal); I25.10 Atherosclerotic heart disease of native coronary artery without angina pectoris; I42.9 Cardiomyopathy, unspecified; E11.9 Type 2 diabetes mellitus without complications; E78.5 Hyperlipidemia, unspecified; D64.9 Anemia, unspecified; I50.22 Chronic systolic (congestive) heart failure; I25.2 Old myocardial infarction; E66.9 Obesity, unspecified; Z95.810 Presence of automatic (implantable) cardiac defibrillator; Z88.5 Allergy status to narcotic agent; Z79.82 Long term (current) use of aspirin; Z79.4 Long term (current) use of insulin; Z79.899 Other long term (current) drug therapy; Z95.1 Presence of aortocoronary bypass graft; Z68.34 Body mass index [BMI] 34.0-34.9, adult
CPT/HCPCS: 71275; 80048; 82962 ×2; 84145; 84484; 85025; 93005; 93880; 96372 ×2; 99285; G0378; 36415; 36416; J1650

== ENCOUNTER 2017-11-23 16:56 | Emergency (ER) | payer MEDICARE ==
[2017-11-23 18:08] LABS: #Eosinphils 0.2 thou/uL (0.0-0.7); #Lymphocytes 1.2 thou/uL (1.20-3.40); #Monocytes 0.5 thou/uL (0.11-0.59); #Neutrophils 2.8 thou/uL (1.40-6.50); %Basophils 0.4 % (0.0-1.0); %Lymphocytes 25.6 % (21.0-51.0); %Monocytes 10.9 % (0.0-10.0); %Neutrophils 58.1 % (42.0-75.0); Mean Corpuscular HGB CONC 34.5 g/dL (32.0-36.0); Mean Corpuscular Volume 89.8 fL (78.0-98.0); Mean Platelet Volume 6.1 fL (7.4-10.4); Platelet Count 142 thou/uL (130-400); RBC Distribution Width 11.9 % (11.5-14.5); Red Blood Cell (RBC) Count 3.54 mill/uL (4.20-5.40); White Blood Cell (WBC) Count 4.7 thou/uL (4.8-10.8)
[2017-11-23 18:33] LABS: Bilirubin Negative (Negative); Blood, Urine Negative (Negative); Clarity CLEAR (Clear); Glucose, Urine (Dipstick) Negative (Negative); Leukocyte Moderate (Negative); Nitrite Negative (Negative); Protein, Urine (Dipstick) Negative (Neg-Trace); Specific Gravity, Urine 1.016 (1.002-1.036); Urobilinogen 0.2 mg/dL (0.2-1.0)
[2017-11-23 18:34] LABS: ALT (SGPT) 120 U/L (8-55); AST (SGOT) 33 U/L (5-34); Albumin 3.5 g/dL (3.4-4.8); Alkaline Phosphatase 111 U/L (40-150); Anion Gap 16 mmol/L (10-20); BUN (Urea Nitrogen) 46 mg/dL (9.8-20.1); Bilirubin, Total 0.2 mg/dL (0.2-1.2); CK (CPK) 44 U/L (29-168); Calc. Creatinine Clearance 0 mL/min (70-130); Calcium 8.8 mg/dL (7.8-10.44); Carbon Dioxide 24 mmol/L (23-31); Chloride 107 mmol/L (98-107); Estimated GFR-MDRD 31; Globulin 2.5 g/dL (2.4-3.5); Glucose 119 mg/dL (80-115); Potassium 4.8 mmol/L (3.5-5.1); Sodium 142 mmol/L (136-145)
[2017-11-23 18:35] LABS: Bacteria/HPF None Seen HPF (None Seen); Hyaline Casts/LPF 4-6 HYALINE CAST LPF (0-3 Hyaline); Pathc Cast-AUWi Flag 1.01 (0-2.49); RBC/HPF 0-3 HPF (0-3); Squamous Epithelial 0-3 HPF (0-3)
[2017-11-23 19:29] LABS: CKMB 0.9 ng/mL (0-6.6); Troponin I Less than 0.010 ng/mL (< 0.028)
--- NOTE | 2017-11-23 19:37 | CT ---
CT OF THE HEAD WITHOUT CONTRAST: 11/23/17 COMPARISON: 02/07/17. HISTORY: Weakness, altered mental status, hypotension. TECHNIQUE: Serial axial CT imaging at 5 mm intervals from vertex through skull base without contrast. FINDINGS: The imaged paranasal sinuses and mastoid air cells appear well aerated. There is no displaced calvari al fracture. No intracranial hemorrhage, midline shift, mass effect or ventricular enlargement. IMPRESSION: No acute findings. POS: [facility]
--- NOTE | 2017-11-23 19:39 | RAD ---
PORTABLE UPRIGHT FRONTAL CHEST RADIOGRAPH 11/23/17 COMPARISON: 11/16/17 HISTORY: Weakness, altered mental status, dehydration. FINDINGS: Mild increased linear density in the right perihilar region suggests volume loss or vascular prominen ce. Midline sternotomy wires are present. Stable single lead AICD noted, inserted via a left subclavi an approach. No pneumothorax, pleural fluid, lobar consolidation, or alveolar edema. IMPRESSION: No acute findings. POS: [facility]
== END 2017-11-23 21:57 | disposition home or self-care (01) ==
LOC: ERS 16:56
DX: N39.0 Urinary tract infection, site not specified (principal); E11.9 Type 2 diabetes mellitus without complications; E78.5 Hyperlipidemia, unspecified; I10 Essential (primary) hypertension; E66.9 Obesity, unspecified; F41.9 Anxiety disorder, unspecified; F31.9 Bipolar disorder, unspecified; Z79.4 Long term (current) use of insulin; Z79.82 Long term (current) use of aspirin; Z79.899 Other long term (current) drug therapy
CPT/HCPCS: 36415; 70450; 71045; 80053; 81003; 81015; 82553; 84443; 84484; 85025; 87040; 93005; 96360; 96361

== ENCOUNTER 2017-12-02 23:26 | Emergency (ER) | payer MEDICARE ==
[2017-12-03] MEDS ORDERED: HYDROcodone/Acetaminophen 10/325 mg Tablet ONE (00:13)
[2017-12-03 00:22] LABS: #Eosinphils 0.3 thou/uL (0.0-0.7); #Lymphocytes 1.7 thou/uL (1.20-3.40); #Monocytes 0.6 thou/uL (0.11-0.59); %Basophils 0.5 % (0.0-1.0); %Eosinophils 5.1 % (0.0-10.0); %Lymphocytes 30.2 % (21.0-51.0); %Monocytes 10.1 % (0.0-10.0); %Neutrophils 54.1 % (42.0-75.0); Hemoglobin 10.8 g/dL (12.0-16.0); Mean Corpuscular HGB CONC 33.1 g/dL (32.0-36.0); Mean Corpuscular Hemoglobin 30.2 pg (27.0-31.0); Mean Corpuscular Volume 91.1 fL (78.0-98.0); Mean Platelet Volume 5.9 fL (7.4-10.4); Platelet Count 212 thou/uL (130-400); RBC Distribution Width 11.7 % (11.5-14.5); Red Blood Cell (RBC) Count 3.59 mill/uL (4.20-5.40); White Blood Cell (WBC) Count 5.6 thou/uL (4.8-10.8)
[2017-12-03 00:48] LABS: ALT (SGPT) 37 U/L (8-55); AST (SGOT) 20 U/L (5-34); Albumin 3.6 g/dL (3.4-4.8); Alkaline Phosphatase 89 U/L (40-150); Anion Gap 15 mmol/L (10-20); BUN (Urea Nitrogen) 40 mg/dL (9.8-20.1); Bilirubin, Total 0.3 mg/dL (0.2-1.2); CK (CPK) 61 U/L (29-168); Calc. Creatinine Clearance 0 mL/min (70-130); Calcium 8.9 mg/dL (7.8-10.44); Carbon Dioxide 25 mmol/L (23-31); Chloride 103 mmol/L (98-107); Estimated GFR-MDRD 31; Globulin 2.6 g/dL (2.4-3.5); Glucose 143 mg/dL (80-115); Lipase 29 U/L (8-78); Potassium 4.7 mmol/L (3.5-5.1); Protein, Total 6.2 g/dL (6.0-8.3); Sodium 138 mmol/L (136-145)
[2017-12-03 00:51] LABS: Troponin I Less than 0.010 ng/mL (< 0.028)
--- NOTE | 2017-12-03 08:59 | CT ---
PRELIMINARY REPORT/[facility]/EMERGENTY AFTER-HOURS PROCEDURE CT Angiography Chest With Intravenous Contrast EXAM DATE/TIME: 12/03/2017 3:22 AM CLINICAL HISTORY: 67 years old, female; Pain; Chest pressure; Patient HX: Briseida presents to the ed C/O midsternal chest p ressure onset 1500. Reports it felt like a child was sitting on her chest and then felt worse after e ating dinner, felt like an adult was siting on her chest. Took antacids and called 911. Reports antacids didn't help. PT reports these SX are similar to the last time she had a mi. PT reports octaviano g a pacemaker place x2 weeks sea captain by dr alvarado. Reports having occasional left sided cp since then. TECHNIQUE: Axial computed tomographic angiography images of the chest with intravenous contrast using CT angiogr aphy protocol. MIP reconstructed images were created and reviewed. COMPARISON: CTA Angio Chest W WO Con 2017-11-17 01:02 FINDINGS: Tubes, lines and devices: Left thoracic wall metallic pacemaker wires within the right heart. Numerou s sternal wires and mediastinal clips. Pulmonary arteries: Adequate contrast enhancement of the pulmonary arteries. No evidence of filling d efects in the cardiac chambers. Aorta: No evidence of aortic dissection. Mild up to 3.2 cm ectasia of ascending thoracic aorta. Chron ic atherosclerotic calcification of the vasculature. Lungs: No evidence endobronchial lesion. Mild left lower lobe linear air space opacityatelectasis/sca rring. Ovoid 1 cm calcific nodule in right middle lobe. Pleural space: No evidence of pleural effusion. No evidence of pneumothorax. Heart: Heart appears within normal limits, no pericardial effusion. Bones/joints: Musculoskeletal structures appear intact. Multi-level degenerative changes involve the thoracic spine. Moderate compression and sclerosis of the T11. Soft tissues: Unremarkable. Lymph nodes: No significant lymphadenopathy. IMPRESSION: 1. No evidence of pulmonary embolism. 2. Mild up to 3.2 cm ectasia of ascending thoracic aorta. 3. Mild left lower lobe linear air space opacity-atelectasis/scarring. Thank you for allowing us to participate in the care of your patient. Dictated and Authenticated by: Kari Morrell MD 12/03/2017 4:35 AM Central Time ([place] & [place]) FINAL REPORT PROCEDURE CTA EXAMINATION WITH IV CONTRAST AND 3D REFORMATTED IMAGING: INDICATION: History of chest pressure and chest pain. COMPARISON: Prior exam dated 11/17/17. IMPRESSION: I agree with the preliminary report provided. No central or segmental pulmonary embolus is evident. There is scattered volume loss within both lungs. There is calcified granuloma within the right upp er lobe. There is a stable remote compression abnormality involving T11. No acute osseous abnormali ty is evident. POS: [facility]
--- NOTE | 2017-12-03 10:12 | RAD ---
AP VIEW OF THE CHEST: INDICATION: Chest pain. COMPARISON: Prior exam dated 11/23/17. FINDINGS: Mild cardiomegaly is stable. Post-CABG change and AICD are similar-appearing. Chronic osseous vidales es are similar. IMPRESSION: No acute abnormality. POS: [facility]
[2017-12-03] MEDS ORDERED: ISOVUE-370 76%-LOCM 1 ML ONE (14:48)
== END 2017-12-03 06:08 | disposition home or self-care (01) ==
LOC: ERS 23:26
DX: R07.89 Other chest pain (principal); E11.9 Type 2 diabetes mellitus without complications; I10 Essential (primary) hypertension; E78.5 Hyperlipidemia, unspecified; E66.9 Obesity, unspecified; F31.9 Bipolar disorder, unspecified; F41.9 Anxiety disorder, unspecified; Z79.899 Other long term (current) drug therapy; Z79.82 Long term (current) use of aspirin
CPT/HCPCS: 36415; 71045; 71275; 80053; 82553; 83690; 84484; 85025; 85379; 93005

== ENCOUNTER 2017-12-04 13:54 | Inpatient (IN) | payer MEDICARE ==
[2017-12-04 15:16] LABS: #Eosinphils 0.2 thou/uL (0.0-0.7); #Lymphocytes 1.4 thou/uL (1.20-3.40); #Monocytes 0.6 thou/uL (0.11-0.59); #Neutrophils 5.8 thou/uL (1.40-6.50); %Basophils 0.6 % (0.0-1.0); %Eosinophils 2.4 % (0.0-10.0); %Lymphocytes 17.6 % (21.0-51.0); %Monocytes 7.5 % (0.0-10.0); %Neutrophils 71.9 % (42.0-75.0); Hemoglobin 11.8 g/dL (12.0-16.0); Mean Corpuscular HGB CONC 34.4 g/dL (32.0-36.0); Mean Corpuscular Hemoglobin 30.8 pg (27.0-31.0); Mean Corpuscular Volume 89.7 fL (78.0-98.0); Mean Platelet Volume 5.7 fL (7.4-10.4); Platelet Count 240 thou/uL (130-400); RBC Distribution Width 11.7 % (11.5-14.5); Red Blood Cell (RBC) Count 3.83 mill/uL (4.20-5.40); White Blood Cell (WBC) Count 8.1 thou/uL (4.8-10.8)
--- NOTE | 2017-12-04 15:35 | RAD ---
AP VIEW OF THE CHEST: INDICATION: History of hypotension with nausea and vomiting. COMPARISON: Prior study dated 12/02/17. FINDINGS: There is improved aeration of the left lung base. Cardiomegaly is stable. AICD is unchanged. Post- CABG change is similar. The right lung is clear. Osseous structures are unchanged. IMPRESSION: Improved aeration of the left lower lobe. POS: [facility]
[2017-12-04 15:40] LABS: ALT (SGPT) 34 U/L (8-55); AST (SGOT) 21 U/L (5-34); Albumin 3.9 g/dL (3.4-4.8); Alkaline Phosphatase 93 U/L (40-150); Anion Gap 14 mmol/L (10-20); BUN (Urea Nitrogen) 41 mg/dL (9.8-20.1); Bilirubin, Total 0.3 mg/dL (0.2-1.2); Calc. Creatinine Clearance 0 mL/min (70-130); Carbon Dioxide 24 mmol/L (23-31); Chloride 99 mmol/L (98-107); Estimated GFR-MDRD 27; Globulin 3.1 g/dL (2.4-3.5); Glucose 270 mg/dL (80-115); Potassium 4.1 mmol/L (3.5-5.1); Sodium 133 mmol/L (136-145); Troponin I Less than 0.010 ng/mL (< 0.028)
[2017-12-04 16:53] LABS: Bilirubin Negative (Negative); Blood, Urine Negative (Negative); Clarity CLEAR (Clear); Glucose, Urine (Dipstick) Negative (Negative); Leukocyte Moderate (Negative); Nitrite Negative (Negative); Protein, Urine (Dipstick) Negative (Neg-Trace); Specific Gravity, Urine 1.019 (1.002-1.036); Urobilinogen 0.2 mg/dL (0.2-1.0)
[2017-12-04 16:56] LABS: Bacteria/HPF None Seen HPF (None Seen); Hyaline Casts/LPF 7-10 HYALINE CAST LPF (0-3 Hyaline); RBC/HPF 0-3 HPF (0-3); Squamous Epithelial 0-3 HPF (0-3)
--- NOTE | 2017-12-04 18:22 | RAD ---
PORTABLE CHEST: Indication: Central line placement. Comparison: Film earlier today. FINDINGS: Central line via the right jugular has been placed. The line overlies the SVC and appears in adequate position. Lung sampson remain clear with no acute interval change. POS: [facility]
[2017-12-04] MEDS ORDERED: Fentanyl 100 MCG/2 ML VIAL ONE (18:37)
[2017-12-04] MEDS ORDERED: DOPamine 400 MG/D5W 250 ML 250 ML ONE (19:15)
[2017-12-04 19:27] LABS: Troponin I Less than 0.010 ng/mL (< 0.028)
[2017-12-04] MEDS ORDERED: Sodium Chloride 0.9% 1,000 ML IV SCH (20:15)
[2017-12-04] MEDS ORDERED: DOPamine 400 MG/D5W 250 ML 250 ML IVPB SCH (20:15)
[2017-12-04 20:30] VITALS: BMI 35.6
[2017-12-04] MEDS ORDERED: Dextrose 50% Abboject 50 ML SYRINGE SLOW IVP PRN (22:10)
[2017-12-04] MEDS ORDERED: Insulin Regular 300 UNITS/3 ML VIAL SC PRN (22:10)
[2017-12-04] MEDS ORDERED: Acetaminophen 325 MG TAB PO PRN (22:10)
[2017-12-04] MEDS ORDERED: Dextrose 5% in Water 1,000 ML IV PRN (22:10)
[2017-12-04] MEDS ORDERED: Ondansetron HCl/PF 4 MG/2 ML Vial IVP PRN (22:10)
[2017-12-04 22:22] LABS: Troponin I Less than 0.010 ng/mL (< 0.028)
[2017-12-04] MEDS ORDERED: Insulin Glargine 15 UNITS in Pre-Filled Syringe 1 EACH SC SCH (22:45)
[2017-12-04] MEDS: cefTRIAXone\\ROCEPHIN 1 GM in Sodium Chloride 0.9% 100 ML IVPB SCH (23:10)
[2017-12-04] MEDS ORDERED: Atorvastatin Calcium 40 MG TAB PO SCH (23:15)
[2017-12-04] MEDS ORDERED: Gabapentin 400 MG CAP PO SCH (23:15)
[2017-12-04] MEDS ORDERED: Cyclobenzaprine 10 MG TAB PO SCH (23:15)
[2017-12-04] MEDS ORDERED: risperiDONE 1 MG TAB PO SCH (23:15)
[2017-12-05 04:21] LABS: #Eosinphils 0.1 thou/uL (0.0-0.7); #Lymphocytes 0.9 thou/uL (1.20-3.40); #Monocytes 0.7 thou/uL (0.11-0.59); #Neutrophils 4.8 thou/uL (1.40-6.50); %Basophils 0.4 % (0.0-1.0); %Eosinophils 1.2 % (0.0-10.0); %Lymphocytes 13.5 % (21.0-51.0); %Monocytes 10.6 % (0.0-10.0); %Neutrophils 74.3 % (42.0-75.0); Hemoglobin 9.1 g/dL (12.0-16.0); Mean Corpuscular HGB CONC 34.6 g/dL (32.0-36.0); Mean Corpuscular Hemoglobin 30.6 pg (27.0-31.0); Mean Corpuscular Volume 88.3 fL (78.0-98.0); Mean Platelet Volume 5.9 fL (7.4-10.4); Platelet Count 188 thou/uL (130-400); RBC Distribution Width 11.4 % (11.5-14.5); Red Blood Cell (RBC) Count 2.99 mill/uL (4.20-5.40); White Blood Cell (WBC) Count 6.4 thou/uL (4.8-10.8)
[2017-12-05 04:39] LABS: Anion Gap 10 mmol/L (10-20); BUN (Urea Nitrogen) 38 mg/dL (9.8-20.1); Calc. Creatinine Clearance 52 mL/min (70-130); Calcium 8.9 mg/dL (7.8-10.44); Carbon Dioxide 28 mmol/L (23-31); Chloride 104 mmol/L (98-107); Estimated GFR-MDRD 35; Glucose 193 mg/dL (80-115); Potassium 4.4 mmol/L (3.5-5.1); Sodium 138 mmol/L (136-145)
--- NOTE | 2017-12-05 05:35 | HP ---
CODE STATUS: FULL CODE. TIME OF EVALUATION: 10:05 p.m. PRIMARY CARE PHYSICIAN: Dr. Heath Haque. CHIEF COMPLAINT: Hypotension. HISTORY OF PRESENT ILLNESS: This is a 67-year-old female patient. The patient has past medical hist ory of diabetes, type 2; hyperlipidemia; hypertension. Also, the patient has had some history of ort hostatic hypotension in the past few days and patient came to the hospital after having an episode of low blood pressure again, feeling dizzy, nauseated, symptoms are reported as moderate to severe, wit h no clear triggers, no alleviating factors. REVIEW OF SYSTEMS: Constitutional: The patient had no fever, chills or generalized weakness. Respi ratory: No cough, no sputum production, no shortness of breath. Cardiovascular: Hypotension, no ch est pain, palpitations or shortness of breath. Gastrointestinal: No nausea, no vomiting, no diarrhe a, no abdominal pain. 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 No headache. Genitourinary : No burning on urination. Extremities: No leg swelling. All other systems were reviewed and were negative except for the findings mentioned above. PAST MEDICAL HISTORY: Diabetes, type 2; hyperlipidemia; hypertension; breast cancer, status post rig ht mastectomy; obesity; left hip fracture. PAST SURGICAL HISTORY: Appendectomy, cholecystectomy, x3, hysterectomy, mastectomy of the right breast, CABG x3 and defibrillator pacemaker implant. PSYCHIATRIC HISTORY: Anxiety, bipolar disorder, depression. SOCIAL HISTORY: No alcohol, no drugs, no smoking history. FAMILY HISTORY: Mother had COPD. Father unknown. ALLERGIES: CODEINE. REPORTED MEDICATIONS: Risperdal, Seroquel, Cymbalta, gabapentin, aspirin, Lasix, metoprolol, Janumet , anastrozole, atorvastatin, alendronate, ferrous sulfate, Protonix, hydroxyzine, Tony, Phenergan. PHYSICAL EXAMINATION: VITAL SIGNS: On presentation, the patient had labile blood pressure, initially was 96/45, recheck , it had improved after the patient was started on dopamine drip. GENERAL APPEARANCE: The patient is alert, oriented, not in any acute distress, obese. HEENT: Eyes, normal conjunctivae. Moist oral mucosa. Anicteric. NECK: No JVD. RESPIRATORY: Bilateral air entry. No rales, no wheezing. Symmetric expansion. CARDIOVASCULAR: Normal rate, regular rhythm. No murmurs, no gallop. No edema. ABDOMEN: Soft, normal bowel sounds. MUSCULOSKELETAL: Baseline range of motion and strength. No tenderness. SKIN: Warm and intact. No pallor, no rash or redness. NEUROLOGIC: Baseline sensory. No evidence of any new focal weakness. Baseline speech. Cranial ner ves seem to be intact. PSYCHIATRIC: In good mood. No anxiety, oriented, optimal judgment. EKG: EKG was reviewed. The patient has normal sinus rhythm at a rate of 88, minimal voltage criteri a for LVH. No other acute findings. RADIOLOGY: Chest x-ray, the patient has central jugular has been placed overlying the SVC and appear s in adequate position, ____ remains clear. No acute interval change. LABORATORY DATA: Labs were reviewed. White count 8.1, hemoglobin 11.8, MCV 89, platelet count 240. Sodium was 133, BUN 41, creatinine 1.89, mildly elevated from previous values ____. GFR 27, glucose 270. Lactic acid was normal. Troponin was negative x3. Urine was positive, having white count 11- 20. ASSESSMENT AND PLAN: The patient will be placed in the hospital with following medical problems. 1. Possible orthostatic hypotension, the patient is needed vasopressor to the blood pressure above 9 0, that was recommended by Dr. Fiore. Dr. Saldivar is her primary manager group home, has been consulted, w e will follow recommendations. During my evaluation, the patient is off the drip right now, blood pr essure has recovered. 2. History of coronary artery disease. The patient seems to be stable at this point. This is chron ic, we will reconcile home medications and adjust treatment as needed. 3. Uncontrolled diabetes. Blood sugar 200, we will reconcile insulin, diabetic diet. 4. Hyperlipidemia, reconcile home medications, low cholesterol diet is advised. 5. Deep venous thrombosis prophylaxis.
[2017-12-05] MEDS ORDERED: Gabapentin 400 MG CAP PO SCH (09:00)
[2017-12-05] MEDS ORDERED: Non-Formulary Item 1 EACH (Levemir Flexpen [Levemir Flexpen] 15 UNIT) SC SCH (09:00)
[2017-12-05] MEDS: DULoxetine 60 MG CAP PO SCH (09:46)
[2017-12-05] MEDS: Insulin Glargine 15 UNITS in Pre-Filled Syringe 1 EACH SC SCH ×2 (09:47→20:11)
[2017-12-05] MEDS: Anastrozole 1 MG TAB PO SCH (09:47)
[2017-12-05] MEDS: Enoxaparin Sodium 40 MG/0.4 ML SYRINGE SC SCH (09:47)
[2017-12-05] MEDS: Gabapentin 300 MG CAP PO SCH ×3 (09:50→20:09)
--- NOTE | 2017-12-05 10:09 | CON ---
DATE OF CONSULTATION: 12/05/2017 HISTORY OF PRESENT ILLNESS: This is a 67-year-old morbidly obese female from [place] who presented with hypotension. Her niece, who takes care of her, checked her blood pressure multipl e times. She was unable to get a BP. She has a primary care physician in [place]. She has bro simone her left hip requiring surgery, but because she had a recent AICD placed in, they are waiting for her to get better before they do the surgery. This morning she denies any chest pain, chills, sweats, hemoptysis, difficulty breathing, nausea or v omiting. PAST MEDICAL HISTORY: Diabetes, hyperlipidemia, high cholesterol, hypertension, recent AICD. PAST SURGICAL HISTORY: Breast cancer, right mastectomy, left hip fracture, appendix, gallbladder [place], , hysterectomy, and CABG. MEDICATIONS: Her list of medicine from home includes Arimidex, aspirin, Lipitor 40, Flexeril 10, Cym kwasi 60, Lasix 40, gabapentin 800, insulin 20 units morning, 24 units at night time. Toprol XL 12.5 , VESIcare 10, Risperdal 0.5, metformin. ALLERGIES: CODEINE. TOBACCO/ALCOHOL: Tobacco none. Alcohol none. SOCIAL/FAMILY HISTORY: Unremarkable. REVIEW OF SYSTEMS: Otherwise, 10-point negative. PHYSICAL EXAMINATION: VITAL SIGNS: Blood pressure is better this morning on low dose dopamine 96-100/50, sats are 98 on ro om air, temperature 98, pulse 90, respiration 17. GENERAL: Awake, alert, responsive. CHEST: Decreased breath sounds, no wheezing. CARDIAC: Normal S1, S2, no gallops. ABDOMEN: Soft, no masses. LABORATORY DATA: Creatinine 1.48. Apparently appears to be at her baseline. White count 6000, H&H is 9 and 26. It has dropped a little bit. White count is normal. Chest x-ray was unremarkable. Chest x-ray was normal. Urine was positive for WBCs [address] chest unremarkable. IMPRESSION: 1. Status post hypotension, etiology unclear, possibly a mild urinary tract infection. 2. Recent automatic implantable cardioverter/defibrillator. 3. Coronary artery disease. 4. Diabetes. 5. Hypertension. PLAN: From the pulmonary standpoint of view she appears to have stabilized. Hopefully, we can wean and discontinue the dopamine. I agree with empiric ceftriaxone. Supportive care. I will follow. This is a consultation note, 70 minutes of which 50% spent in direct patient care.
--- NOTE | 2017-12-05 13:07 | PDOC.PN ---
- Subjective Encounter Start Date: 12/05/17 Encounter Start Time: 12:00 Subjective: no sob or palp -: no dizziness, feels better - Objective Resuscitation Status: Resuscitation Status FULL:Full Resuscitation MAR Reviewed: Yes Vital Signs & Weight: Vital Signs (12 hours) Temp Pulse Resp BP Pulse Ox 12/05/17 11:50 98.6 F 98 19 145/67 H 98 12/05/17 07:37 98.5 F 98 17 114/54 L 98 12/05/17 04:00 99.0 F 96 17 129/64 96 Weight Weight 194 lb I&O: 12/04/17 12/05/17 12/06/17 06:59 06:59 06:59 Intake Total 880 Output Total 650 Balance 230 Result Diagrams: 12/05/17 03:40 12/05/17 03:40 Additional Labs: Accuchecks 12/05/17 12/05/17 12/04/17 10:51 06:26 23:15 POC Glucose 149 H 133 H 247 H Phys Exam - Physical Examination HEENT: PERRLA, moist MMs Neck: no JVD, supple Respiratory: no wheezing, no rales Cardiovascular: RRR, no significant murmur Gastrointestinal: soft, non-tender, positive bowel sounds Musculoskeletal: no edema, pulses present Neurological: non-focal, moves all 4 limbs Psychiatric: normal affect, A&O x 3 Dx/Plan (1) Hypotension Status: Acute Qualifiers: Hypotension type: unspecified hypotension type Qualified Code(s): I95.9 - Hypotension, unspecified (2) Anemia Code(s): D64.9 - ANEMIA, UNSPECIFIED Status: Chronic Qualifiers: Anemia type: unspecified type (3) CAD (coronary artery disease) Code(s): I25.10 - ATHSCL HEART DISEASE OF [place] CORONARY ARTERY W/O ANG PCTRS Status: Chronic Qualifiers: Coronary Disease-Associated Artery/Lesion type: bypass graft [place] vs. transplanted heart: [place] heart Associated angina: without angina Qualified Code(s): I25.810 - Atherosclerosis of coronary artery bypass graft(s) without angina pectoris (4) Cardiomyopathy Code(s): I42.9 - CARDIOMYOPATHY, UNSPECIFIED Status: Chronic Qualifiers: Comment: ef of 35% (5) DM type 2 (diabetes mellitus, type 2) Status: Chronic Qualifiers: Diabetes mellitus fci insulin use: with fci use Diabetes mellitus complication status: with unspecified complications Qualified Code(s) : E11.8 - Type 2 diabetes mellitus with unspecified complications; Z79.4 - long term (current) use of insulin; Z79.4 - residential (current) use of insulin; Z79.4 - long term (current) use of insulin; Z79.4 - residential (current) use of insulin (6) Dyslipidemia Code(s): E78.5 - HYPERLIPIDEMIA, UNSPECIFIED Status: Chronic (7) Bipolar disorder Code(s): F31.9 - BIPOLAR DISORDER, UNSPECIFIED Status: Chronic Qualifiers: Active/Remission status: remission status unspecified Qualified Code(s): F31.9 - Bipolar disorder, unspecified - Plan reduce dose of neurontin to 300mg tid, dc flexeril HS -: mild julio resolving, is off dopamine drip -: cardiology opinion, is on ceftriaxone, await cultures -: continue asp, lipitor, cymbalta and risperdal (?bipolar with pschosis) -: PT/OT eval, may tx to tele * . Review of Systems - Medications/Allergies Allergies/Adverse Reactions: Allergies Allergy/AdvReac Type Severity Reaction Status Date / Time codeine Allergy Verified 12/04/17 20:22 Medications: Current Medications Acetaminophen (Tylenol) 650 mg PO Q4H PRN PRN Reason: Headache/Fever or Pain Hydrocodone Bitart/Acetaminophen ([place] 10/325) 1 tab PO Q4HR PRN PRN Reason: Moderate Pain (4-6) Anastrozole (Arimidex) 1 mg PO DAILY [facility] Last Admin: 12/05/17 09:47 Dose: 1 mg Aspirin (Aspirin Chewable) 81 mg PO DAILY [facility] Last Admin: 12/05/17 09:46 Dose: 81 mg Atorvastatin Calcium (Lipitor) 40 mg PO HS [facility] Dextrose/Water (Dextrose 50%) 25 gm SLOW IVP PRN PRN PRN Reason: Hypoglycemia Duloxetine HCl (Cymbalta) 60 mg PO DAILY [facility] Last Admin: 12/05/17 09:46 Dose: 60 mg Enoxaparin Sodium (Lovenox) 40 mg SC 0900 [facility] Last Admin: 12/05/17 09:47 Dose: 40 mg Gabapentin (Neurontin) 300 mg PO TID [facility] Last Admin: 12/05/17 09:50 Dose: 300 mg Glucagon (Glucagon) 1 mg IM PRN PRN PRN Reason: Hypoglycemia Ceftriaxone Sodium 1 gm/ (Sodium Chloride) 100 mls @ 200 mls/hr IVPB Q24HR [facility] Last Admin: 12/04/17 23:10 Dose: 100 mls Dextrose/Water (D5w) 1,000 mls @ 0 mls/hr IV .Q0M PRN; As Directed PRN Reason: Hypoglycemia Insulin Glargine 15 units/ (Miscellaneous Medication) 0.15 mls @ 0 mls/hr SC HS KHOI Insulin Glargine 15 units/ (Miscellaneous Medication) 0.15 mls @ 0 mls/hr SC QAM [facility] Last Admin: 12/05/17 09:47 Dose: 0.15 mls Insulin Human Regular (Humulin R) 0 units SC .MILD SLIDING SCALE PRN PRN Reason: Mild Correctional Scale Ondansetron HCl (Zofran) 4 mg IVP Q6H PRN PRN Reason: Nausea/Vomiting Pantoprazole Sodium (Protonix) 40 mg PO DAILY [facility] Last Admin: 12/05/17 09:47 Dose: 40 mg Risperidone (Risperidone) 0.5 mg PO HS [facility] Sodium Chloride (Flush - Normal Saline) 10 ml IVF Q12HR [facility] Last Admin: 12/05/17 09:50 Dose: 10 ml Sodium Chloride (Flush - Normal Saline) 10 ml IVF PRN PRN PRN Reason: Saline Flush
[2017-12-05] MEDS: risperiDONE 1 MG TAB PO SCH (20:09)
[2017-12-05] MEDS: HYDROcodone/Acetaminophen 10/325 mg Tablet PO PRN (20:10)
[2017-12-05] MEDS: Atorvastatin Calcium 40 MG TAB PO SCH (20:10)
[2017-12-05] MEDS ORDERED: Non-Formulary Item 1 EACH (Levemir Flexpen [Levemir Flexpen] 15 UNITS) SC SCH (21:00)
[2017-12-05] MEDS ORDERED: Cyclobenzaprine 10 MG TAB PO SCH (21:00)
--- NOTE | 2017-12-05 21:23 | CON ---
DATE OF CONSULTATION: 12/05/2017 REASON FOR CONSULTATION: Hypotension. HISTORY OF PRESENT ILLNESS: Mrs. Dee is a very pleasant 67-year-old white female who comes to the hospital for having low blood pressure. She was at home. Her dredgemaster was trying to get her blood pressure and she could not get a recording so she was brought in for evaluation. She is minimally s ymptomatic from this when she gets up, this when she gets mostly hypotensive in the 60s-40, but when she is lying on her back, she is in the 140s. She recently had an AICD placed due to ischemic cardio myopathy. Her EF was about 30-35% with anterior akinesis. She had a heart catheterization before th at was back in June where she was found to have an occluded BARRERA to the LAD and 100% occluded LAD . She had a widely paint RCA and left circumflex. She underwent AICD placement and eventually had a fall and broke her hip. This has not been fixed apparently. PAST MEDICAL HISTORY: 1. Type 2 diabetes. 2. Hyperlipidemia. 3. Hypertension. 4. Ischemic cardiomyopathy. 5. AICD placement. PAST SURGICAL HISTORY: 1. Right mastectomy due to breast cancer. 2. Left hip fracture. 3. Appendectomy. 4. Cholecystectomy. 5. . 6. Hysterectomy. 7. CABG x1 with BARRERA to the LAD. OUTPATIENT MEDICATIONS: 1. Levemir. 2. Risperdal. 3. Flexeril. 4. Lipitor 40 mg at bedtime. 5. Janumet. 6. VESIcare. 7. Protonix. 8. Toprol-XL 12.5 mg b.i.d. 9. Camanche p.r.n. 10. Gabapentin 800 mg t.i.d. 11. Lasix 40 mg a day. 12. Duloxetine 60 mg a day. 13. Aspirin 81 a day. 14. Arimidex daily. ALLERGIES: CODEINE. SOCIAL HISTORY: No alcohol, tobacco or drugs. FAMILY HISTORY: Noncontributory. REVIEW OF SYSTEMS: A 12-point review of systems was done and is all negative unless stated in the hi story of present illness. PHYSICAL EXAMINATION: VITAL SIGNS: Temperature 99.0 on admission, heart rate between 96 and 109, respiration rate 13, satt ing 98% on room air, blood pressure 124/73. GENERAL: Awake, alert, oriented x3, in no distress. HEENT: Normocephalic, atraumatic. NECK: Supple. LUNGS: Lungs are clear. CARDIOVASCULAR: S1, S2, no S3, S4. There is a grade 2/6 systolic murmur at the right upper sternal border. ABDOMEN: Soft, positive bowel sounds. EXTREMITIES: No edema. SKIN: Warm and dry. LABORATORY WORK: Reviewed. CBC with white count of 8.1, hemoglobin of 11.8, hematocrit 34, platelet count of 240. Chemistry with a creatinine of 1.8, now better at 1.48. Lactic acid normal at 1.3. Troponin was negative. Calcium of 8.9. UA with moderate leukocyte esterase, 11-20 white cells, othe rwise negative. Chest x-ray showed no acute findings. ASSESSMENT AND PLAN: 1. Hypotension: Improved. She is no longer on pressors. Most likely a little bit of orthostatic h ypotension given her Lasix use. At this point, I will get an echocardiogram to make sure that she do es not have any fluid around the heart making her hypotensive, as she just had a defibrillator placed about 3 weeks ago. Otherwise, she is doing much better. I would modify her blood pressure medicati ons that according to standing blood pressure readings. 2. Ischemic cardiomyopathy, ejection fraction of 30-35% and the most recent echo before AICD. Echo pending today. 3. Coronary artery disease: Stable at this time. No evidence of acute coronary syndrome. 4. Hypertension: Hypotensive mostly. Thank you for letting participate in the care of your patient. We will follow.
[2017-12-05] MEDS: cefTRIAXone\\ROCEPHIN 1 GM in Sodium Chloride 0.9% 100 ML IVPB SCH (23:53)
[2017-12-06] MEDS: Insulin Glargine 15 UNITS in Pre-Filled Syringe 1 EACH SC SCH ×2 (09:06→20:31)
[2017-12-06] MEDS: Anastrozole 1 MG TAB PO SCH (09:07)
[2017-12-06] MEDS: Enoxaparin Sodium 40 MG/0.4 ML SYRINGE SC SCH (09:07)
[2017-12-06] MEDS: Gabapentin 300 MG CAP PO SCH ×3 (09:07→20:30)
[2017-12-06] MEDS: DULoxetine 60 MG CAP PO SCH (09:07)
[2017-12-06] MEDS: HYDROcodone/Acetaminophen 10/325 mg Tablet PO PRN ×3 (09:09→20:27)
--- NOTE | 2017-12-06 12:22 | PRG ---
DATE OF SERVICE: 12/06/2017 SUBJECTIVE: This morning, she is better. She is less short of breath, no pain or discomfort. Her hypotension is resolved. PHYSICAL EXAMINATION: VITAL SIGNS: Blood pressure is 130/77, sats are 94%, temperature 97, pulse 90, respiratory rate of 1 6. CHEST: No wheezing. CARDIAC: Normal S1, S2, no gallops. ABDOMEN: Soft. IMPRESSION: 1. Hypotension, resolved. 2. Morbid obesity. 3. Cardiomyopathy with ejection fraction about 45%. PLAN: She can probably be transferred out of the MICU. She has been on empiric antibiotics, they are continued, probably discontinue tomorrow antibiotics if cultures are negative.
--- NOTE | 2017-12-06 14:08 | PDOC.PN ---
- Subjective Encounter Start Date: 12/06/17 Encounter Start Time: 14:06 Feels ok. No specific concerns. - Objective Resuscitation Status: Resuscitation Status FULL:Full Resuscitation Vital Signs & Weight: Vital Signs (12 hours) Temp Pulse Resp BP Pulse Ox 12/06/17 11:58 97.5 F L 88 12 116/62 93 L 12/06/17 08:00 97.7 F 90 15 12/06/17 07:44 97.7 F 90 15 138/77 94 L 12/06/17 04:00 97.0 F L 82 13 143/77 H 96 Weight Weight 191 lb 12.8 oz I&O: 12/05/17 12/06/17 12/07/17 06:59 06:59 06:59 Intake Total 880 1030 Output Total 650 600 550 Balance 230 430 -550 Result Diagrams: 12/05/17 03:40 12/05/17 03:40 Additional Labs: Accuchecks 12/06/17 12/06/17 12/05/17 10:13 06:18 19:59 POC Glucose 228 H 105 202 H 12/05/17 17:08 POC Glucose 191 H Phys Exam - Physical Examination Constitutional: NAD Neck: no JVD, supple Respiratory: no wheezing, no rales, no rhonchi, clear to auscultation bilateral Cardiovascular: RRR, no significant murmur Gastrointestinal: soft, non-tender, no distention Musculoskeletal: no edema Psychiatric: normal affect Dx/Plan (1) Hypotension Status: Acute Qualifiers: Hypotension type: unspecified hypotension type Qualified Code(s): I95.9 - Hypotension, unspecified Comment: Generally orthostatic. Meds held. Decreased gabapentin. Supine BP ok. Will reassess orthostatics. (2) Bipolar disorder Code(s): F31.9 - BIPOLAR DISORDER, UNSPECIFIED Status: Chronic Qualifiers: Active/Remission status: remission status unspecified Qualified Code(s): F31.9 - Bipolar disorder, unspecified Comment: Continue home meds as BP tolerates. (3) Constipation Code(s): K59.00 - CONSTIPATION, UNSPECIFIED Status: Acute (4) h/o aicd Status: Acute (5) CAD (coronary artery disease) Code(s): I25.10 - ATHSCL HEART DISEASE OF [place] CORONARY ARTERY W/O ANG PCTRS Status: Chronic Qualifiers: Coronary Disease-Associated Artery/Lesion type: bypass graft [place] vs. transplanted heart: [place] heart Associated angina: without angina Qualified Code(s): I25.810 - Atherosclerosis of coronary artery bypass graft(s) without angina pectoris (6) Cardiomyopathy Code(s): I42.9 - CARDIOMYOPATHY, UNSPECIFIED Status: Chronic Qualifiers: Comment: EF on echo this admission 45% (7) DM type 2 (diabetes mellitus, type 2) Status: Chronic Qualifiers: Diabetes mellitus care home insulin use: with salvage determiner use Diabetes mellitus complication status: with unspecified complications Qualified Code(s) : E11.8 - Type 2 diabetes mellitus with unspecified complications; Z79.4 - salvage determiner (current) use of insulin; Z79.4 - prison (current) use of insulin; Z79.4 - prison (current) use of insulin; Z79.4 - salvage determiner (current) use of insulin - Plan * Cardiology following as well. Multiple medication changes, including the reduction of the gabapentin. Re-evaluate orthostatic vitals.
--- NOTE | 2017-12-06 16:03 | PDOC.CTH ---
Cardiology Progress Note - Subjective She feels very close to baseline. She has not had any more hypotension at rest but had not checked her BP standing up. - Objective Vital Signs Temp Pulse Resp BP Pulse Ox 12/06/17 15:33 97.8 F 86 15 135/64 95 12/06/17 11:58 97.5 F L 88 12 116/62 93 L 12/06/17 08:00 97.7 F 90 15 12/06/17 07:44 97.7 F 90 15 138/77 94 L 12/06/17 04:00 97.0 F L 82 13 143/77 H 96 Weight 191 lb 12.8 oz 12/05/17 12/06/17 12/07/17 06:59 06:59 06:59 Intake Total 880 1030 Output Total 650 600 550 Balance 230 430 -550 - Physical Examination General/Neuro: alert & oriented x3, NAD Neck: no JVD present Lungs: CTA, unlabored respirations Heart: RRR Abdomen: NT/ND Extremities: other: (no edema.) - Telemetry Telemetry Rhythm: NSR - Labs Result Diagrams: 12/05/17 03:40 12/05/17 03:40 Troponin/CKMB CK-MB (CK-2) 1.0 ng/mL (0-6.6) 12/04/17 15:07 Troponin I Less than 0.010 ng/mL (< 0.028) 12/04/17 21:47 - Assessment/Plan 1. Hypotension, orthostatic 2. Chronic systolic heart failure. 3. Reduced EF at 40-45% now. PLAN: - Continue to hold all anti hypertensives. - Need to check all her BP's standing only. - If she remains stable likely discharge tomorrow.
[2017-12-06] MEDS: Atorvastatin Calcium 40 MG TAB PO SCH (20:30)
[2017-12-06] MEDS: risperiDONE 1 MG TAB PO SCH (20:30)
[2017-12-06] MEDS: cefTRIAXone\\ROCEPHIN 1 GM in Sodium Chloride 0.9% 100 ML IVPB SCH (23:11)
[2017-12-07] MEDS: HYDROcodone/Acetaminophen 10/325 mg Tablet PO PRN ×2 (03:32→10:35)
[2017-12-07] MEDS: DULoxetine 60 MG CAP PO SCH (08:48)
[2017-12-07] MEDS: Gabapentin 300 MG CAP PO SCH (08:49)
[2017-12-07] MEDS: Anastrozole 1 MG TAB PO SCH (08:49)
[2017-12-07] MEDS: Insulin Glargine 15 UNITS in Pre-Filled Syringe 1 EACH SC SCH (08:49)
[2017-12-07] MEDS: Enoxaparin Sodium 40 MG/0.4 ML SYRINGE SC SCH (08:49)
--- NOTE | 2017-12-07 10:11 | PRG ---
DATE OF SERVICE: 12/07/2017 She has no complaint, no shortness of breath. PHYSICAL EXAMINATION: VITAL SIGNS: Blood pressure is stabilized, but is slightly low, this morning 97/64, sats 97 on room air, temperature is 97, pulse 80, respirations 18. CHEST: No wheezing. CARDIAC: Normal S1-S2. No gallops. ABDOMEN: Soft, no masses. IMPRESSION: Hypertension, no evidence of any sepsis at this stage. PLAN: I will consider discontinuing the antibiotics. She can probably go home. She is bipolar. Co ntinue home medication.
--- NOTE | 2017-12-07 10:50 | PDOC.CTH ---
Cardiology Progress Note - Subjective She is doing better. Her BP standing is in the 90's over 60's asymptomatic. - Objective Vital Signs Temp Pulse Resp BP BP Pulse Ox 12/07/17 07:31 97.6 F 92 18 97 12/07/17 07:00 98.9 F 92 18 95 12/07/17 06:45 97/64 12/07/17 03:58 97.6 F 92 18 138/67 96 12/06/17 23:56 97.2 F L 80 18 153/77 H 96 Weight 195 lb 12/06/17 12/07/17 12/08/17 06:59 06:59 06:59 Intake Total 1030 1300 Output Total 600 1225 Balance 430 75 - Physical Examination General/Neuro: alert & oriented x3, NAD Neck: no JVD present Lungs: unlabored respirations Heart: RRR Abdomen: NT/ND Extremities: other: (no edema) - Telemetry Telemetry Rhythm: NSR - Labs Result Diagrams: 12/05/17 03:40 12/05/17 03:40 Troponin/CKMB CK-MB (CK-2) 1.0 ng/mL (0-6.6) 12/04/17 15:07 Troponin I Less than 0.010 ng/mL (< 0.028) 12/04/17 21:47 - Assessment/Plan 1. Hypotension, orthostatic. improved. 2. Chronic systolic heart failure. 3. Reduced EF at 40-45% now. 4. s/p AICD placement. PLAN: - Discontinue all anti hypertensives indefinitely. - Need to check all her BP's standing only and will act upon standing BP's only. - Stable for discharge. - Follow up in the office in 4 weeks. - Will sign off. Please call with any questions.
[2017-12-07 16:00] VITALS: BP 117/65; TEMP 98.2
--- NOTE | 2017-12-08 12:42 | PQF ---
SAP History Instructor Crystal Reports Scottform AramCHRISTIE,JOVITA MONAE MD [id number] [facility]- B12 [id number] CLINICAL DOCUMENTATION CLARIFICATION FORM: POST DISCHARGE Addendum to original discharge summary date: ____ Late entry note date: __ Please exercise your independent, professional judgment in responding to the clarification form. Clinical indicators are provided on the bottom of this form for your review. PLEASE CLARIFY DIAGNOSIS OF UTI MENTIONED IN THE RECORD, no Discharge Summary as of 12/08. THANK YOU Please check appropriate box(s) to clarify if the following diagnosis has been ruled in or ruled out: URINARY TRACK INFECTION ____(CDI/Coding list diagnosis here) [ ] Ruled in diagnosis [ ] Continue to treat [ ] Resolved [ ] Ruled out diagnosis [ ] Cannot rule out diagnosis [ ] Other diagnosis [ ] Unable to determine In addition, please specify: Present on Admission (POA): [ ] Yes [ ] No [ ] Unable to determine For continuity of documentation, please document condition throughout progress notes and discharge summary. Thank You. CLINICAL INDICATORS - SIGNS / SYMPTOMS / LABS To support the diagnosis- Urine was positive, having white count 11-20 per H&P Consultation by Kip Dunham MD 12/05 - "Status post hypotension, etiology unclear, possibly a mild urinary tract infection." To support resolution of diagnosis- No Discharge Summary to confirm dx. RISK FACTORS To support diagnosis- Orthostatic hypotension, Hx CAD, Uncontrolled DM, PACO, [place] systolic CHF, Morbid Obesity, Bipolar, CAD, Hypertensive heart disease with heart failure, hyperlipidemia, Ischemic cardiomyopathy TREATMENTS To support diagnosis- Vasopressors UA culture Blood culture- No growth at 48 hrs. (This form is maintained as a part of the permanent medical record) SAP History Instructor Crystal Reports Win[employer] [id number]. All Rights Reserved Annalisa [email or web address] [phone] I never saw this patient - Carmela PACHECO
--- NOTE | 2017-12-09 12:14 | PQF ---
SAP Staff Sonographer Crystal Reports Winform ViewerJOHNNIETREYNANCYISAIAS ROSSI MD [id number] [facility] [id number] CLINICAL DOCUMENTATION CLARIFICATION FORM: POST DISCHARGE Addendum to original discharge summary date: ____ Late entry note date: 12/14/2017 Please exercise your independent, professional judgment in responding to the clarification form. Clinical indicators are provided on the bottom of this form for your review. Please clarify diagnosis of UTI mentioned in the Record. No Discharge Summary as of 12/09. Thank you. Please check appropriate box(s) to clarify if the following diagnosis has been ruled in or ruled out: Urinary Track Infection ____(CDI/Coding list diagnosis here) [ ] Ruled in diagnosis [ ] Continue to treat [ ] Resolved [ x] Ruled out diagnosis [ ] Cannot rule out diagnosis [ ] Other diagnosis [ ] Unable to determine In addition, please specify: Present on Admission (POA): [ ] Yes [ ] No [ ] Unable to determine For continuity of documentation, please document condition throughout progress notes and discharge summary. Thank You. CLINICAL INDICATORS - SIGNS / SYMPTOMS / LABS To support the diagnosis- Urine as positive having white count 11-20 per H&P Consultation by Kip Dunham Dm 12/05- "Status post hypotension, etiology unclear, possibly a mild urinary tract infection." To support resolution of diagnosis RISK FACTORS To support diagnosis- Orthostatic hypotension, Hx CAD, uncontrolled DM, PACO, Chronic systolic CHF, Morbid obesity, Bipolar, Hypertensive heart disease with heart failure, hyperlipidemia, ischemic cardiomyopathy TREATMENTS To support diagnosis SAP Staff Sonographer Crystal Reports Winform Viewer(This form is maintained as a part of the permanent medical record) 2014 [employer]. All Rights Reserved Annalisa .Mobile Authentication [phone] MTDD
--- NOTE | 2017-12-10 11:46 | EKG ---
Test Reason : Blood Pressure : / mmHG Vent. Rate : 088 BPM Atrial Rate : 088 BPM P-R Int : 138 ms QRS Dur : 092 ms QT Int : 400 ms P-R-T Axes : 004 -23 046 degrees QTc Int : 484 ms Normal sinus rhythm Minimal voltage criteria for LVH, may be normal variant Septal infarct , age undetermined Abnormal ECG Confirmed by PEYTON UP DO ([id number]), senior technical editor ALLEN ESPARZA ([id number]) on 12/10/2017 11:46:25 AM Referred By: Confirmed By:PEYTON UP DO
== END 2017-12-07 16:15 | disposition home or self-care (01) | DRG 312 ==
LOC: ERS 13:54 → IMCU/EMU 18:23
PROVIDERS: ADMIT Internal Medicine; ATTEND Internal Medicine
PROC: 02HV33Z Insertion of Infusion Device into Superior Vena Cava, Percutaneous Approach (ICD-10-PCS; principal; 2017-12-04)
PROC: 3E043XZ Introduction of Vasopressor into Central Vein, Percutaneous Approach (ICD-10-PCS; 2017-12-04)
PROC: B24BZZ4 Ultrasonography of Heart with Aorta, Transesophageal (ICD-10-PCS; 2017-12-05)
DX: I95.1 Orthostatic hypotension (principal); I50.22 Chronic systolic (congestive) heart failure; F31.9 Bipolar disorder, unspecified; I11.0 Hypertensive heart disease with heart failure; E11.65 Type 2 diabetes mellitus with hyperglycemia; E78.5 Hyperlipidemia, unspecified; I25.5 Ischemic cardiomyopathy; E66.01 Morbid (severe) obesity due to excess calories; I25.10 Atherosclerotic heart disease of native coronary artery without angina pectoris; Z79.4 Long term (current) use of insulin; Z68.35 Body mass index [BMI] 35.0-35.9, adult; Z87.81 Personal history of (healed) traumatic fracture; Z95.810 Presence of automatic (implantable) cardiac defibrillator; Z95.1 Presence of aortocoronary bypass graft; Z85.3 Personal history of malignant neoplasm of breast; Z90.11 Acquired absence of right breast and nipple; Z79.82 Long term (current) use of aspirin; K59.00 Constipation, unspecified
CPT/HCPCS: 36415; 36416; 36556; 51701; 71045; 71275; 80048; 80053; 81003; 81015; 82553; 83605; 83690; 84484; 85025; 85379; 87040; 87086; 93005; 93306; 96360; 96361; 96365; 96375; A4216; A4353; J0696; J1265; J1650; J3010; J7050

== ENCOUNTER 2017-12-27 15:25 | Emergency (ER) | payer MEDICARE ==
[2017-12-27 15:57] LABS: #Eosinphils 0.2 thou/uL (0.0-0.7); #Lymphocytes 0.9 thou/uL (1.20-3.40); #Monocytes 0.5 thou/uL (0.11-0.59); #Neutrophils 4.3 thou/uL (1.40-6.50); %Basophils 0.3 % (0.0-1.0); %Eosinophils 2.6 % (0.0-10.0); %Lymphocytes 15.9 % (21.0-51.0); %Monocytes 8.2 % (0.0-10.0); Hemoglobin 10.6 g/dL (12.0-16.0); Mean Corpuscular HGB CONC 34.1 g/dL (32.0-36.0); Mean Corpuscular Hemoglobin 30.5 pg (27.0-31.0); Mean Corpuscular Volume 89.6 fL (78.0-98.0); Mean Platelet Volume 5.7 fL (7.4-10.4); Platelet Count 255 thou/uL (130-400); RBC Distribution Width 11.9 % (11.5-14.5); Red Blood Cell (RBC) Count 3.46 mill/uL (4.20-5.40); White Blood Cell (WBC) Count 5.8 thou/uL (4.8-10.8)
[2017-12-27 16:19] LABS: ALT (SGPT) 17 U/L (8-55); AST (SGOT) 12 U/L (5-34); Albumin 3.6 g/dL (3.4-4.8); Alkaline Phosphatase 77 U/L (40-150); Anion Gap 13 mmol/L (10-20); BUN (Urea Nitrogen) 39 mg/dL (9.8-20.1); Bilirubin, Total 0.3 mg/dL (0.2-1.2); CK (CPK) 31 U/L (29-168); Calc. Creatinine Clearance 0 mL/min (70-130); Calcium 9.1 mg/dL (7.8-10.44); Carbon Dioxide 29 mmol/L (23-31); Chloride 101 mmol/L (98-107); Estimated GFR-MDRD 33; Glucose 379 mg/dL (80-115); Potassium 4.8 mmol/L (3.5-5.1); Protein, Total 6.6 g/dL (6.0-8.3); Sodium 138 mmol/L (136-145)
[2017-12-27 16:23] LABS: Troponin I Less than 0.010 ng/mL (< 0.028)
--- NOTE | 2017-12-27 17:22 | RAD ---
RADIOGRAPH CHEST 1 VIEW: 12/27/17 at 4:22 p.m. HISTORY: 67-year-old female with hypotension and hypoxemia. FINDINGS: There is no air space density, pulmonary edema, or pneumothorax. The lateral costophrenic angles are sharp. There is a single lead left subclavian AICD. There are sternotomy wires. There are surgical c lips over the left mediastinal and left cardiac border. The only interval change since 12/04/17 is katharina t the right internal central venous catheter has been removed. IMPRESSION: 1. No acute pulmonary findings. 2. Automatically implantable cardioverter/defibrillator. 3. Status post coronary artery bypass graft surgery is evidence for coronary atherosclerotic dis ease. beau [] POS: CHRISTINA
[2017-12-27 17:39] LABS: Bilirubin Negative (Negative); Blood, Urine Negative (Negative); Clarity CLEAR (Clear); Glucose, Urine (Dipstick) 500 mg/dL (Negative); Leukocyte Small (Negative); Nitrite Negative (Negative); Protein, Urine (Dipstick) Negative (Neg-Trace); Specific Gravity, Urine 1.013 (1.002-1.036); Urobilinogen 0.2 mg/dL (0.2-1.0); pH, Urine 5.5 (5.0-9.0)
[2017-12-27 17:42] LABS: Bacteria/HPF None Seen HPF (None Seen); Hyaline Casts/LPF 4-6 HYALINE CAST LPF (0-3 Hyaline); Pathc Cast-AUWi Flag 1.45 (0-2.49); RBC/HPF 0-3 HPF (0-3)
[2017-12-27 17:59] LABS: Transitional Epithelial 0-3 HPF (0-3)
== END 2017-12-27 21:15 | disposition home or self-care (01) ==
LOC: ERS 15:25
DX: I10 Essential (primary) hypertension (principal); E11.9 Type 2 diabetes mellitus without complications; E78.5 Hyperlipidemia, unspecified; F41.9 Anxiety disorder, unspecified; Z79.82 Long term (current) use of aspirin; Z79.899 Other long term (current) drug therapy
CPT/HCPCS: 51701; 71045; 80053; 81003; 81015; 82553; 84484; 85025; 93005; 96360; A4353

== ENCOUNTER 2018-02-13 11:00 | Inpatient (IN) | payer MEDICARE ==
[2018-02-13 12:20] VITALS: BMI 35.6
[2018-02-20] MEDS ORDERED: Glycopyrrolate 0.2 MG/ML 5 ML SYRINGE ONE (10:51)
[2018-02-20] MEDS ORDERED: PROPOFOL 200 MG/20 ML VIAL ONE (10:51)
[2018-02-20] MEDS ORDERED: PHENYLEPHRINE-NS 100 MCG/ML 10 ML SYRINGE ONE (10:51)
[2018-02-20] MEDS ORDERED: Midazolam HCl 2 mg/2 ml Vial ONE (12:04)
[2018-02-20] MEDS ORDERED: Fentanyl 100 MCG/2 ML VIAL ONE ×2 (12:04→16:12)
[2018-02-20] MEDS ORDERED: CEFAZOLIN/Water 2 GM/20 ML SYRINGE ONE (12:12)
[2018-02-20] MEDS ORDERED: Naloxone HCl 0.4 mg/ml Vial ONE (12:29)
[2018-02-20] MEDS ORDERED: diphenhydrAMINE 25 MG CAP PO PRN (12:30)
[2018-02-20] MEDS ORDERED: Zolpidem Tartrate 5 MG TAB PO PRN ×2 (12:30→15:24)
[2018-02-20] MEDS ORDERED: Naloxone HCl 0.4 mg/ml Vial IVP PRN (12:30)
[2018-02-20] MEDS ORDERED: diphenhydrAMINE 50 MG/ML VIAL IM PRN (12:30)
[2018-02-20] MEDS ORDERED: Naloxone HCl 0.4 mg/ml Vial IV PRN (12:30)
[2018-02-20] MEDS ORDERED: Promethazine HCl 25 MG SUPP PR PRN (12:30)
[2018-02-20] MEDS ORDERED: Hydrocerin (Eucerin) Cream 120 gm Jar TOP PRN (12:30)
[2018-02-20] MEDS ORDERED: traMADol HCl 50 MG TAB PO PRN ×3 (12:30→15:24)
[2018-02-20] MEDS ORDERED: Ondansetron HCl/PF 4 MG/2 ML Vial IVP PRN ×3 (12:30→15:24)
[2018-02-20] MEDS ORDERED: HYDROcodone/Acetaminophen 5/325 mg Tablet PO PRN ×2 (12:30)
[2018-02-20] MEDS ORDERED: Promethazine HCl 25 MG/ML VIAL IM PRN ×2 (12:30→15:13)
[2018-02-20] MEDS ORDERED: diphenhydrAMINE 50 MG/ML VIAL IVP PRN (12:30)
[2018-02-20] MEDS ORDERED: fentaNYL Citrate/PF 1,250 MCG, Bupivacaine 25 ML in Sodium Chloride 0.9% 250 ML 200 ML EPIDURAL SCH (12:30)
[2018-02-20] MEDS ORDERED: Lidocaine 2% w/Epinephrine 1:200K 20 ML VIAL ONE (12:44)
[2018-02-20] MEDS ORDERED: Bupivacaine 0.25% 10 ML VIAL EPIDURAL PRN (12:45)
[2018-02-20] MEDS ORDERED: Promethazine HCl 25 MG/ML VIAL SLOW IVP PRN (15:13)
[2018-02-20] MEDS ORDERED: Ketorolac Tromethamine 30 MG/ML VIAL IVP PRN (15:24)
[2018-02-20] MEDS ORDERED: Alendronate Sodium 70 mg Tablet PO SCH (15:24)
[2018-02-20] MEDS ORDERED: Cyclobenzaprine 10 MG TAB PO PRN (15:24)
[2018-02-20] MEDS ORDERED: Acetaminophen 500 MG TAB PO PRN (15:24)
[2018-02-20] MEDS ORDERED: Ondansetron ODT 4 MG TAB PO PRN (15:24)
[2018-02-20] MEDS ORDERED: Fentanyl 100 MCG/2 ML VIAL SLOW IVP PRN ×2 (15:24)
[2018-02-20] MEDS ORDERED: Morphine 4 MG/ML Carpuject SLOW IVP PRN (15:24)
[2018-02-20] MEDS ORDERED: HYDROcodone/Acetaminophen 10/325 mg Tablet PO PRN ×2 (15:24)
[2018-02-20] MEDS ORDERED: METFORMIN HCL PO SCH (17:00)
[2018-02-20] MEDS ORDERED: SITAGLIPTIN PHOS PO SCH (17:00)
--- NOTE | 2018-02-20 17:04 | RAD ---
TWO TO THREE VIEW LEFT HIP SERIES: INDICATIONS: Postoperative left hip evaluation, status post total hip replacement. FINDINGS: There are metallic raheel overlying the lateral left thigh, proximally. A left hip prosthesis is in place, without evidence of hardware complication. There is no acute fracture. Soft tissue air is p resent, regionally, related to recent surgery. IMPRESSION: Postoperative left hip without acute hardware complication. POS: AZAEL
[2018-02-20] MEDS ORDERED: HYDROcodone/Acetaminophen 10/325 mg Tablet PO SCH (18:00)
--- NOTE | 2018-02-20 18:31 | PDOC.PN ---
- Subjective Encounter Start Date: 02/20/18 Encounter Start Time: 18:00 Subjective: lethargic, awakens easily -: on cpap at home settings with 2 lts oxygen -: no chest pain or sob, moves all extremities - Objective MAR Reviewed: Yes Vital Signs & Weight: Weight Weight 195 lb Phys Exam - Physical Examination HEENT: moist MMs right eye post op hemorrhage Neck: no JVD, supple Respiratory: no wheezing, no rales Cardiovascular: RRR, no significant murmur Gastrointestinal: soft, non-tender, positive bowel sounds Musculoskeletal: no edema, pulses present Neurological: non-focal, moves all 4 limbs Dx/Plan (1) s/p left total hip arthroplasty Status: Acute (2) NIELS (obstructive sleep apnea) Code(s): G47.33 - OBSTRUCTIVE SLEEP APNEA (ADULT) (PEDIATRIC) Status: Chronic Comment: on cpap (3) Acute respiratory failure with hypoxia Code(s): J96.01 - ACUTE RESPIRATORY FAILURE WITH HYPOXIA Status: Acute Comment: is post op left hip replacement (4) h/o aicd Status: Chronic (5) CAD (coronary artery disease) Code(s): I25.10 - ATHSCL HEART DISEASE OF [place] CORONARY ARTERY W/O ANG PCTRS Status: Chronic Qualifiers: Coronary Disease-Associated Artery/Lesion type: bypass graft [place] vs. transplanted heart: [place] heart Associated angina: without angina Qualified Code(s): I25.810 - Atherosclerosis of coronary artery bypass graft(s) without angina pectoris Comment: has occluded graft with collaterals (6) Cardiomyopathy Code(s): I42.9 - CARDIOMYOPATHY, UNSPECIFIED Status: Chronic Qualifiers: Cardiomyopathy type: ischemic Qualified Code(s): I25.5 - Ischemic cardiomyopathy Comment: EF around 40% (7) DM type 2 (diabetes mellitus, type 2) Status: Chronic Qualifiers: Diabetes mellitus detention insulin use: with long term care pharmacist use Diabetes mellitus complication status: with unspecified complications Qualified Code(s) : E11.8 - Type 2 diabetes mellitus with unspecified complications; Z79.4 - halfway (current) use of insulin (8) Dyslipidemia Code(s): E78.5 - HYPERLIPIDEMIA, UNSPECIFIED Status: Chronic (9) History of breast cancer in female Code(s): Z85.3 - PERSONAL HISTORY OF MALIGNANT NEOPLASM OF BREAST Status: Chronic Comment: prior right mastectomy (10) Bipolar disorder Code(s): F31.9 - BIPOLAR DISORDER, UNSPECIFIED Status: Chronic Qualifiers: Active/Remission status: remission status unspecified - Plan transfer pt [facility] for [facility] stay with hypoxia -: is off fentanyl, continue marcaine epidural -: d/w , cautious use of narcotics -: cpap at home settings with 2 lts nc -: lovenox for dvt prophylaxis, toprol, lipitor, janumet * . Review of Systems - Medications/Allergies Allergies/Adverse Reactions: Allergies Allergy/AdvReac Type Severity Reaction Status Date / Time codeine Allergy Verified 02/13/18 11:48 Medications: Current Medications Acetaminophen (Tylenol) 1,000 mg PO Q6H PRN PRN Reason: VELAZQUEZ/T > 101F/Mild Pain (1-3) Hydrocodone Bitart/Acetaminophen ([place] 5/325) 1 tab PO Q4H PRN PRN Reason: Mild Pain 1-3 Hydrocodone Bitart/Acetaminophen ([place] 5/325) 2 tab PO Q4H PRN PRN Reason: For Moderate Pain 4-6 Anastrozole (Arimidex) 1 mg PO QPM [facility] Aspirin (Ecotrin) 81 mg PO BID [facility] Atorvastatin Calcium (Lipitor) 40 mg PO QAM [facility] Bupivacaine HCl (Marcaine) 5 ml EPIDURAL ONE PRN PRN Reason: UNCONTROLLED PAIN Stop: 02/23/18 12:46 Cefazolin Sodium (Ancef) 2 gm SLOW IVP 0400,1200,2000 [facility] Stop: 02/21/18 04:01 Cyclobenzaprine HCl (Flexeril) 10 mg PO TID PRN PRN Reason: Muscle Spasm Diphenhydramine HCl (Benadryl) 25 mg PO Q3H PRN PRN Reason: Itching Diphenhydramine HCl (Benadryl) 25 mg IM Q3H PRN PRN Reason: Itching Diphenhydramine HCl (Benadryl) 25 mg IVP Q3H PRN PRN Reason: Itching Docusate Sodium (Colace) 200 mg PO BID [facility] Duloxetine HCl (Cymbalta) 60 mg PO BID [facility] Emollient Cream (Hydrocerin Cream) 0 gm TOP PRN PRN PRN Reason: Itching Ferrous Sulfate (Feosol) 325 mg PO QAM-[facility] Furosemide (Lasix) 40 mg PO QAM [facility] Gabapentin (Neurontin) 300 mg PO BID [facility] Gabapentin (Neurontin) 400 mg PO BID [facility] Fentanyl Citrate 1,250 mcg/Bupivacaine HCl 25 ml/ Sodium Chloride 250 mls @ 6 mls/hr EPIDURAL INF [facility] Sodium Chloride (Normal Saline 0.9%) 1,000 mls @ 100 mls/hr IV .Q10H [facility] Insulin Glargine 20 units/ (Miscellaneous Medication) 0.2 mls @ 0 mls/hr SC HS [facility] Insulin Glargine 35 units/ (Miscellaneous Medication) 0.35 mls @ 0 mls/hr SC QAM [facility] Ketorolac Tromethamine (Toradol) 15 mg IVP Q6H PRN PRN Reason: Mild Pain (1-3) Stop: 02/22/18 15:25 Miscellaneous Information (Communication Order-Pharmacy) 1 each FS ASDIR [facility] Naloxone HCl (Narcan) 0.2 mg IV Q5MIN PRN PRN Reason: RR <=8 OR OBTUNDED/UNAROUSABLE Naloxone HCl (Narcan) 0.1 mg IVP Q15MIN PRN PRN Reason: URINARY RETENTION Ondansetron HCl (Zofran Odt) 4 mg PO Q6H PRN PRN Reason: Nausea/Vomiting Ondansetron HCl (Zofran) 4 mg IVP Q6H PRN PRN Reason: Nausea/Vomiting Sitagliptin Phos/Metformin Hcl [ Janumet] 50-500mg Tab 0 each PO BID-WM [facility] Promethazine HCl (Phenergan) 12.5 mg IM Q4H PRN PRN Reason: Nausea Promethazine HCl (Phenergan Suppository) 25 mg DE Q4H PRN PRN Reason: Nausea/Vomiting Sodium Chloride (Flush - Normal Saline) 10 ml IVF PRN PRN PRN Reason: Saline Flush Tizanidine HCl (Zanaflex) 4 mg PO PRN PRN PRN Reason: Muscle Spasm Tramadol HCl (Ultram) 50 mg PO Q6H PRN PRN Reason: Mild Pain 1-3 Tramadol HCl (Ultram) 100 mg PO Q6H PRN PRN Reason: Moderate Pain 4-6 Trospium (Trospium) 20 mg PO BID [facility] Zolpidem Tartrate (Ambien) 5 mg PO HSPRN PRN PRN Reason: Insomnia
[2018-02-20] MEDS ORDERED: Bupivacaine 10 ML in Sodium Chloride 0.9% 90 ML EPIDURAL SCH (19:00)
[2018-02-20] MEDS ORDERED: DULoxetine 60 MG CAP PO SCH (21:00)
[2018-02-20] MEDS ORDERED: Non-Formulary Item 1 EACH (Levemir Flexpen [Levemir Flexpen] 20 UNITS) SC SCH (21:00)
[2018-02-20] MEDS ORDERED: RISPERIDONE 1 MG PO SCH (21:00)
[2018-02-20] MEDS ORDERED: Aspirin 81 mg Enteric Coated Tablet PO SCH (21:00)
[2018-02-20] MEDS ORDERED: Enoxaparin Sodium 40 MG/0.4 ML SYRINGE SC SCH (21:00)
[2018-02-20] MEDS ORDERED: tiZANidine HCl 4 MG TAB PO PRN (21:55)
[2018-02-20] MEDS: Docusate 100 MG CAP PO SCH (22:02)
[2018-02-20] MEDS: Gabapentin 300 MG CAP PO SCH (22:03)
[2018-02-20] MEDS: Anastrozole 1 MG TAB PO SCH (22:03)
[2018-02-20] MEDS: Gabapentin 400 MG CAP PO SCH (22:03)
[2018-02-20] MEDS: CEFAZOLIN/Water 2 GM/20 ML SYRINGE SLOW IVP SCH (22:52)
[2018-02-20] MEDS: Enoxaparin Sodium 40 MG/0.4 ML SYRINGE SC SCH (22:52)
[2018-02-20] MEDS: Sodium Chloride 0.9% 1,000 ML IV SCH (23:17)
[2018-02-21] MEDS: Insulin Glargine 20 UNITS in Pre-Filled Syringe 1 EACH SC SCH ×2 (01:03→22:26)
[2018-02-21] MEDS: TROSPIUM 20 MG TABLET PO SCH ×3 (01:03→22:00)
[2018-02-21 03:52] LABS: Hemoglobin 10.1 g/dL (12.0-16.0); Mean Corpuscular HGB CONC 33.2 g/dL (32.0-36.0); Mean Corpuscular Hemoglobin 29.8 pg (27.0-31.0); Mean Corpuscular Volume 89.8 fL (78.0-98.0); Mean Platelet Volume 6.5 fL (7.4-10.4); Platelet Count 203 thou/uL (130-400); RBC Distribution Width 12.1 % (11.5-14.5); Red Blood Cell (RBC) Count 3.38 mill/uL (4.20-5.40); White Blood Cell (WBC) Count 5.3 thou/uL (4.8-10.8)
[2018-02-21] MEDS: Sodium Chloride 0.9% 1,000 ML IV SCH ×3 (04:53→22:20)
[2018-02-21] MEDS: CEFAZOLIN/Water 2 GM/20 ML SYRINGE SLOW IVP SCH (05:49)
[2018-02-21] MEDS ORDERED: Dextrose 5% in Water 1,000 ML IV PRN (06:14)
[2018-02-21] MEDS ORDERED: Dextrose 50% Abboject 50 ML SYRINGE IVP PRN (06:14)
[2018-02-21] MEDS ORDERED: CEFAZOLIN/Water 2 GM/20 ML SYRINGE SLOW IVP SCH (06:30)
[2018-02-21] MEDS: HumaLOG 300 UNITS/3 ML VIAL SC PRN ×2 (06:39→22:28)
[2018-02-21] MEDS ORDERED: metFORMIN 500 MG TAB PO SCH (08:00)
[2018-02-21] MEDS ORDERED: Non-Formulary Item 1 EACH (Levemir Flexpen [Levemir Flexpen] 35 UNIT) SC SCH (09:00)
[2018-02-21] MEDS: Insulin Glargine 35 UNITS in Pre-Filled Syringe 1 EACH SC SCH (10:09)
[2018-02-21] MEDS: Alogliptin 6.25 MG TAB PO SCH ×2 (10:10→17:35)
[2018-02-21] MEDS: Furosemide 40 MG TAB PO SCH (10:11)
[2018-02-21] MEDS: Gabapentin 300 MG CAP PO SCH ×2 (10:11→22:00)
[2018-02-21] MEDS: Docusate 100 MG CAP PO SCH ×2 (10:11→22:00)
[2018-02-21] MEDS: Gabapentin 400 MG CAP PO SCH ×2 (10:11→22:00)
[2018-02-21] MEDS: Ferrous Sulfate 325 MG TAB PO SCH (10:11)
[2018-02-21] MEDS: Atorvastatin Calcium 40 MG TAB PO SCH (10:12)
[2018-02-21 10:33] LABS: Anion Gap 15 mmol/L (10-20); BUN (Urea Nitrogen) 35 mg/dL (9.8-20.1); Calc. Creatinine Clearance 45 mL/min (70-130); Calcium 8.7 mg/dL (7.8-10.44); Carbon Dioxide 25 mmol/L (23-31); Chloride 101 mmol/L (98-107); Estimated GFR-MDRD 30; Glucose 226 mg/dL (80-115); Potassium 4.5 mmol/L (3.5-5.1); Sodium 136 mmol/L (136-145)
[2018-02-21] MEDS: DULoxetine 60 MG CAP PO SCH (10:42)
[2018-02-21] MEDS ORDERED: Morphine 10 MG/ML VIAL SLOW IVP SCH (11:56)
[2018-02-21] MEDS ORDERED: Ondansetron ODT 8 MG TAB SL PRN (12:23)
--- NOTE | 2018-02-21 13:55 | PDOC.PN ---
- Subjective Encounter Start Date: 02/21/18 Encounter Start Time: 13:51 Subjective: feels better. denies any CP/SOB.no N/V/Abd pain -: no ON events - Objective MAR Reviewed: Yes Vital Signs & Weight: Vital Signs (12 hours) Temp Pulse Pulse Pulse Pulse Resp BP 02/21/18 11:31 97.9 F 100 18 02/21/18 09:30 102 H 115 H 102 H 87/50 L 02/21/18 08:00 02/21/18 07:26 99.1 F 102 H 17 02/21/18 04:23 98.7 F 111 H 27 H BP BP BP Pulse Ox Pulse Ox Pulse Ox Pulse Ox 02/21/18 11:31 114/54 L 99 02/21/18 09:30 78/59 L 113/42 L 93 L 94 L 98 02/21/18 08:00 100 02/21/18 07:26 128/59 L 100 02/21/18 04:23 139/67 97 Weight Weight 195 lb I&O: 02/20/18 02/21/18 02/22/18 06:59 06:59 06:59 Intake Total 300 Output Total 650 Balance -350 Result Diagrams: 02/21/18 03:32 02/21/18 10:03 Additional Labs: Accuchecks 02/21/18 02/21/18 02/20/18 10:54 06:00 22:38 POC Glucose 265 H 302 H 262 H Laboratory Tests 02/08/18 02/08/18 02/13/18 09:08 09:08 11:53 Hgb 10.1 L Creatinine 1.43 H 1.68 H 02/13/18 02/21/18 02/21/18 11:53 03:32 10:03 Hgb 10.9 L 10.1 L Creatinine 1.70 H Phys Exam - Physical Examination Constitutional: NAD HEENT: PERRLA, moist MMs, sclera anicteric, oral pharynx no lesions Neck: no nodes, no JVD, supple, full ROM Respiratory: no wheezing, no rales, no rhonchi, clear to auscultation bilateral Cardiovascular: RRR, no significant murmur, no rub Gastrointestinal: soft, non-tender, no distention, positive bowel sounds Musculoskeletal: no edema, pulses present Neurological: non-focal, normal sensation, moves all 4 limbs Psychiatric: normal affect, A&O x 3 Skin: no rash Dx/Plan (1) Acute respiratory failure with hypoxia Code(s): J96.01 - ACUTE RESPIRATORY FAILURE WITH HYPOXIA Status: Acute Comment: is post op left hip replacement (2) PACO (acute kidney injury) Code(s): N17.9 - ACUTE KIDNEY FAILURE, UNSPECIFIED Status: Acute (3) s/p left total hip arthroplasty Status: Acute (4) NIELS (obstructive sleep apnea) Code(s): G47.33 - OBSTRUCTIVE SLEEP APNEA (ADULT) (PEDIATRIC) Status: Chronic Comment: on cpap (5) Anemia Code(s): D64.9 - ANEMIA, UNSPECIFIED Status: Chronic Qualifiers: Anemia type: unspecified type (6) Bipolar disorder Code(s): F31.9 - BIPOLAR DISORDER, UNSPECIFIED Status: Chronic Qualifiers: Active/Remission status: remission status unspecified (7) Cardiomyopathy Code(s): I42.9 - CARDIOMYOPATHY, UNSPECIFIED Status: Chronic Qualifiers: Cardiomyopathy type: ischemic Qualified Code(s): I25.5 - Ischemic cardiomyopathy Comment: EF around 40% (8) Diabetes mellitus type 2 in obese Code(s): E11.9 - TYPE 2 DIABETES MELLITUS WITHOUT COMPLICATIONS; E66.9 - OBESITY , UNSPECIFIED Status: Chronic (9) Dyslipidemia Code(s): E78.5 - HYPERLIPIDEMIA, UNSPECIFIED Status: Chronic (10) History of breast cancer in female Code(s): Z85.3 - PERSONAL HISTORY OF MALIGNANT NEOPLASM OF BREAST Status: Chronic Comment: prior right mastectomy.On Arimidex (11) Hx of coronary artery disease Code(s): Z86.79 - PERSONAL HISTORY OF OTHER DISEASES OF THE CIRCULATORY SYSTEM Status: Chronic (12) h/o aicd Status: Chronic - Plan PT/OT, out of bed/ambulate, DVT proph w/SCDs Hold Metfromin and stop toradol given paco.follow -: Respiratory status stable and imrpved. Ok to Transfer to Surgical floor -: CPAP qhs. -: hemodynamically stable.will follow. -: ISS w accuchecks * . Review of Systems - Review of Systems Constitutional: weakness. negative: fever, chills, sweats, malaise, other ENT: negative: Ear Pain, Ear Discharge, Nose Pain, Nose Discharge, Nose Congestion, Mouth Pain, Mouth Swelling, Throat Pain, Throat Swelling, Other Respiratory: negative: Cough, Dry, Shortness of Breath, Hemoptysis, SOB with Excertion, Pleuritic Pain, Sputum, Wheezing Cardiovascular: negative: chest pain, palpitations, orthopnea, paroxysmal nocturnal dyspnea, edema, light headedness, other Gastrointestinal: negative: Nausea, Vomiting, Abdominal Pain, Diarrhea, Constipation, Melena, Hematochezia, Other Genitourinary: negative: Dysuria, Frequency, Incontinence, Hematuria, Retention , Other Musculoskeletal: Leg Pain. negative: Neck Pain, Shoulder Pain, Arm Pain, Back Pain, Hand Pain, Foot Pain, Other Neurological: negative: Weakness, Numbness, Incoordination, Change in Speech, Confusion, Seizures, Other - Medications/Allergies Allergies/Adverse Reactions: Allergies Allergy/AdvReac Type Severity Reaction Status Date / Time codeine Allergy Verified 02/21/18 04:28 Medications: Current Medications Acetaminophen (Tylenol) 1,000 mg PO Q6H PRN PRN Reason: VELAZQUEZ/T > 101F/Mild Pain (1-3) Hydrocodone Bitart/Acetaminophen ([place] 5/325) 1 tab PO Q4H PRN PRN Reason: Mild Pain 1-3 Hydrocodone Bitart/Acetaminophen ([place] 5/325) 2 tab PO Q4H PRN PRN Reason: For Moderate Pain 4-6 Alogliptin Benzoate (Alogliptin) 12.5 mg PO BID-[facility] Last Admin: 02/21/18 10:10 Dose: 12.5 mg Anastrozole (Arimidex) 1 mg PO QPM [facility] Last Admin: 02/20/18 22:03 Dose: 1 mg Atorvastatin Calcium (Lipitor) 40 mg PO QAM [facility] Last Admin: 02/21/18 10:12 Dose: 40 mg Bupivacaine HCl (Marcaine) 5 ml EPIDURAL ONE PRN PRN Reason: UNCONTROLLED PAIN Stop: 02/23/18 12:46 Dextrose/Water (Dextrose 50%) 25 gm IVP PRN PRN PRN Reason: HYPOGLYCEMIA PROTOCOL Docusate Sodium (Colace) 200 mg PO BID [facility] Last Admin: 02/21/18 10:11 Dose: 200 mg Duloxetine HCl (Cymbalta) 60 mg PO DAILY [facility] Last Admin: 02/21/18 10:42 Dose: 60 mg Emollient Cream (Hydrocerin Cream) 0 gm TOP PRN PRN PRN Reason: Itching Enoxaparin Sodium (Lovenox) 40 mg SC 2100 [facility] Last Admin: 02/20/18 22:52 Dose: 40 mg Ferrous Sulfate (Feosol) 325 mg PO QA-[facility] Last Admin: 02/21/18 10:11 Dose: 325 mg [facility] ([facility]ix) [facility] [place] Last Admin: 02/21/18 10:11 Dose: 40 mg Gabapentin (Neurontin) 300 mg PO BID [facility] Last Admin: 02/21/18 10:11 Dose: 300 mg Gabapentin (Neurontin) 400 mg PO BID [facility] Last Admin: 02/21/18 10:11 Dose: 400 mg Glucagon (Glucagon) 1 mg IM PRN PRN PRN Reason: HYPOGLYCEMIA PROTOCOL Sodium Chloride (Normal Saline 0.9%) 1,000 mls @ 100 mls/hr IV .Q10H [facility] Last Admin: 02/21/18 13:09 Dose: Not Given Insulin Glargine 20 units/ (Miscellaneous Medication) 0.2 mls @ 0 mls/hr SC [facility] Last Admin: 02/21/18 01:03 Dose: Not Given Insulin Glargine 35 units/ (Miscellaneous Medication) 0.35 mls @ 0 mls/hr SC [facility] Last Admin: 02/21/18 10:09 Dose: 0.35 mls Dextrose/Water (D5w) 1,000 mls @ 0 mls/hr IV INF PRN PRN Reason: HYPOGLYCEMIA PROTOCOL Bupivacaine HCl 10 ml/ Sodium (Chloride) 100 mls @ 4 mls/hr EPIDURAL INF [facility] Insulin Human Lispro (Humalog) 0 units SC .MILD SLIDING SCALE PRN; Protocol PRN Reason: MILD SLIDING SCALE Last Admin: 02/21/18 06:39 Dose: 5 unit Miscellaneous Information (Communication Order-Pharmacy) 1 each FS ASDIR [facility] Naloxone HCl (Narcan) 0.2 mg IV Q5MIN PRN PRN Reason: RR <=8 OR OBTUNDED/UNAROUSABLE Naloxone HCl (Narcan) 0.1 mg IVP Q15MIN PRN PRN Reason: URINARY RETENTION Ondansetron HCl (Zofran Odt) 4 mg PO Q6H PRN PRN Reason: Nausea/Vomiting Ondansetron HCl (Zofran) 4 mg IVP Q6H PRN PRN Reason: Nausea/Vomiting Sodium Chloride (Flush - Normal Saline) 10 ml IVF PRN PRN PRN Reason: Saline Flush Last Admin: 02/21/18 06:37 Dose: 10 ml Tizanidine HCl (Zanaflex) 4 mg PO DAILYPRN PRN PRN Reason: Muscle Spasm Tramadol HCl (Ultram) 50 mg PO Q6H PRN PRN Reason: Mild Pain 1-3 Trospium (Trospium) 20 mg PO BID [facility] Last Admin: 02/21/18 10:12 Dose: 20 mg
[2018-02-21] MEDS: Bupivacaine 10 ML in Sodium Chloride 0.9% 90 ML EPIDURAL SCH (14:56)
--- NOTE | 2018-02-21 21:07 | OP ---
DATE OF SURGERY: 02/20/2018 PREOPERATIVE DIAGNOSIS: Right hip posttraumatic arthritis, status post acetabular fracture. POSTOPERATIVE DIAGNOSIS: Right hip posttraumatic arthritis, status post acetabular fracture. SURGICAL PROCEDURE: Left total hip arthroplasty. ANESTHESIA: General. SURGEON: Jabier Ashley M.D. SLEEPING CAR PORTER: Kev Nielsen PA-C. BLOOD LOSS: 250 mL IMPLANTS: DePuy system was used with a Daniels size 6 stem, a Lambrook 52 mm shell, a Lambrook +4 10- degree offset polyliner and an MSPECT +5 head. COMPLICATIONS: None. DRAINS: None. SPECIMENS: None. OUTCOME: Stable total hip arthroplasty. INDICATIONS: Ms. Dee is a pleasant 67-year-old lady who is status post minimally displaced acetab ular fracture; however, unfortunately, she has gone on to develop some protrusio as well as arthritis which is both acute on chronic. The patient now is having difficulty with activities of normal ethan y living because of her left hip and groin pain. After discussion with patient including risks and b enefits, we decided to proceed with total hip arthroplasty. Informed consent has been obtained. Thalia rosario all questions have been answered. DESCRIPTION OF PROCEDURE: The patient was brought to the operating room and a timeout performed foll owed by induction of general anesthesia. Next, the patient was positioned in a right lateral decubit us position and a sterile prep and drape was performed in the left lower extremity. A curvilinear in cision was made centered over the greater trochanter. After skin was sharply incised, dissection was carried down to the underlying tensor fascia and fascia cristian. This structure was incised in-line wi th the skin incision. Next, the trochanteric bursa was swept off the short external rotators. An el evator was placed under the abductors and then the piriformis superior and inferior gemellus and obtu rator internus wall released from the posterior femur. These structures were then swept posteriorly revealing the underlying capsule. A T-capsulotomy was performed and femoral head dislocated. At thi s point, an oscillating saw was used to perform a femoral neck cut and femoral head was removed. Ins pection of the acetabulum showed a protrusio cup with osteophyte formation peripherally at the acetab ulum. There was a very solid floor to the acetabulum as such was felt that a more standard total hip could be performed. Reaming was started at size 44 and continued up to size 51. At this point, the re was good rim fit and bleeding cancellous bone noted. As such, a 52 mm shell was inserted. There were still lipping osteophytes, these were excised with an osteotome. Once the shell was well positi oned with no longer any osteophyte lipping, a 10-degree offset liner was introduced without difficult y. Next, attention was placed in the proximal femur. A box chisel was used to obtain an initial sta rting point at the proximal femur for intramedullary canal preparation. Next, a T handle awl was pas sed down the canal followed by a lateralizing reamer. Progressive T handle were also passed down the canal until size 6, had good fit and fill. Broaching was started at size 4 and continued up to size 6 that showed good fit and fill proximally. A trial reduction was then performed and a +5 head was felt to give acceptable leg lengths and good stability of the hip. The trial was then removed and th e canal thoroughly irrigated with Pulsavac. Next, a size 6 stem was placed was without difficu lty. Once fully seated, a +5 head was inserted on top of the stem and then the hip was reduced. It was felt that clinically she had good jain of length and did have reasonably good stability wh en brought into the 90:90 position with internal rotation. At this point, the wound again irrigated with Pulsavac and then closed in layers with #2 Vicryl for the hip capsule and #2 Vicryl for the shor t external rotator repair. This was followed by a #2 Vicryl for the tensor fascia and fascia cristian, 0 Vicryl for Elaine's fascia, 2-0 Vicryl subcutaneously, and raheel for the skin. A Xeroform gauze a nd tape dressing was applied to the lateral thigh and then patient was transferred to recovery room i n stable condition. There were no complications. She tolerated the procedure well.
[2018-02-21] MEDS: Anastrozole 1 MG TAB PO SCH (22:00)
[2018-02-21] MEDS: Enoxaparin Sodium 40 MG/0.4 ML SYRINGE SC SCH (22:00)
[2018-02-22 05:56] LABS: Hemoglobin 9.2 g/dL (12.0-16.0); Mean Corpuscular HGB CONC 33.5 g/dL (32.0-36.0); Mean Corpuscular Hemoglobin 30.1 pg (27.0-31.0); Mean Platelet Volume 6.5 fL (7.4-10.4); Platelet Count 198 thou/uL (130-400); RBC Distribution Width 12.2 % (11.5-14.5); Red Blood Cell (RBC) Count 3.05 mill/uL (4.20-5.40); White Blood Cell (WBC) Count 6.4 thou/uL (4.8-10.8)
[2018-02-22 06:21] LABS: Anion Gap 12 mmol/L (10-20); BUN (Urea Nitrogen) 27 mg/dL (9.8-20.1); Calc. Creatinine Clearance 55 mL/min (70-130); Calcium 8.7 mg/dL (7.8-10.44); Carbon Dioxide 29 mmol/L (23-31); Chloride 98 mmol/L (98-107); Estimated GFR-MDRD 38; Glucose 251 mg/dL (80-115); Potassium 3.5 mmol/L (3.5-5.1); Sodium 135 mmol/L (136-145)
[2018-02-22] MEDS: HumaLOG 300 UNITS/3 ML VIAL SC PRN ×4 (06:24→21:08)
[2018-02-22] MEDS: Sodium Chloride 0.9% 1,000 ML IV SCH ×2 (07:46→17:33)
[2018-02-22] MEDS: Furosemide 40 MG TAB PO SCH (08:37)
[2018-02-22] MEDS: Atorvastatin Calcium 40 MG TAB PO SCH (08:37)
[2018-02-22] MEDS: DULoxetine 60 MG CAP PO SCH (08:37)
[2018-02-22] MEDS: TROSPIUM 20 MG TABLET PO SCH ×2 (08:37→20:44)
[2018-02-22] MEDS: Gabapentin 400 MG CAP PO SCH ×2 (08:37→20:45)
[2018-02-22] MEDS: Alogliptin 6.25 MG TAB PO SCH ×2 (08:37→17:32)
[2018-02-22] MEDS: Gabapentin 300 MG CAP PO SCH ×2 (08:37→20:44)
[2018-02-22] MEDS: Ferrous Sulfate 325 MG TAB PO SCH (08:37)
[2018-02-22] MEDS: Docusate 100 MG CAP PO SCH ×2 (08:37→20:42)
[2018-02-22] MEDS: Insulin Glargine 35 UNITS in Pre-Filled Syringe 1 EACH SC SCH (08:38)
[2018-02-22] MEDS: Bupivacaine 10 ML in Sodium Chloride 0.9% 90 ML EPIDURAL SCH (14:46)
--- NOTE | 2018-02-22 15:34 | PDOC.PN ---
- Subjective Encounter Start Date: 02/22/18 Encounter Start Time: 15:32 Subjective: still w pain in post op hip -: no CP/SOB - Objective MAR Reviewed: Yes Vital Signs & Weight: Vital Signs (12 hours) Temp Pulse Resp BP Pulse Ox 02/22/18 15:11 98.4 F 94 20 125/79 95 02/22/18 12:35 92 L 02/22/18 11:49 98.7 F 104 H 18 116/75 92 L 02/22/18 07:47 99.0 F 101 H 18 140/84 95 02/22/18 04:00 99.1 F 100 18 139/83 94 L Weight Weight 195 lb 3.2 oz I&O: 02/21/18 02/22/18 02/23/18 06:59 06:59 06:59 Intake Total 300 840 768 Output Total 360 879 3241 Balance -350 90 -232 Result Diagrams: 02/22/18 05:18 02/22/18 05:18 Additional Labs: Accuchecks 02/22/18 02/22/18 02/21/18 11:36 05:57 22:26 POC Glucose 301 H 280 H 254 H 02/21/18 16:27 POC Glucose 281 H Phys Exam - Physical Examination Constitutional: NAD HEENT: PERRLA, moist MMs, sclera anicteric, oral pharynx no lesions Neck: no nodes, no JVD, supple, full ROM Respiratory: no wheezing, no rales, no rhonchi, clear to auscultation bilateral Cardiovascular: RRR, no significant murmur, no rub Gastrointestinal: soft, non-tender, no distention, positive bowel sounds Musculoskeletal: no edema, pulses present Neurological: non-focal, normal sensation, moves all 4 limbs Psychiatric: normal affect, A&O x 3 Skin: no rash Dx/Plan (1) PACO (acute kidney injury) Code(s): N17.9 - ACUTE KIDNEY FAILURE, UNSPECIFIED Status: Acute (2) s/p left total hip arthroplasty Status: Acute (3) Acute respiratory failure with hypoxia Code(s): J96.01 - ACUTE RESPIRATORY FAILURE WITH HYPOXIA Status: Resolved Comment: is post op left hip replacement (4) NIELS (obstructive sleep apnea) Code(s): G47.33 - OBSTRUCTIVE SLEEP APNEA (ADULT) (PEDIATRIC) Status: Chronic Comment: on cpap (5) Anemia Code(s): D64.9 - ANEMIA, UNSPECIFIED Status: Chronic Qualifiers: Anemia type: unspecified type (6) Bipolar disorder Code(s): F31.9 - BIPOLAR DISORDER, UNSPECIFIED Status: Chronic Qualifiers: Active/Remission status: remission status unspecified (7) Cardiomyopathy Code(s): I42.9 - CARDIOMYOPATHY, UNSPECIFIED Status: Chronic Qualifiers: Cardiomyopathy type: ischemic Qualified Code(s): I25.5 - Ischemic cardiomyopathy Comment: EF around 40% (8) Diabetes mellitus type 2 in obese Code(s): E11.9 - TYPE 2 DIABETES MELLITUS WITHOUT COMPLICATIONS; E66.9 - OBESITY , UNSPECIFIED Status: Chronic (9) Dyslipidemia Code(s): E78.5 - HYPERLIPIDEMIA, UNSPECIFIED Status: Chronic (10) History of breast cancer in female Code(s): Z85.3 - PERSONAL HISTORY OF MALIGNANT NEOPLASM OF BREAST Status: Chronic Comment: prior right mastectomy.On Arimidex (11) Hx of coronary artery disease Code(s): Z86.79 - PERSONAL HISTORY OF OTHER DISEASES OF THE CIRCULATORY SYSTEM Status: Chronic (12) h/o aicd Status: Chronic - Plan PT/OT, respiratory therapy, incentive spirometry, out of bed/ambulate, DVT proph w/SCDs HD stable. respiratory status stable -: renal Fx better.on IVF w lasix. -: IM team will follow * . Review of Systems - Review of Systems Constitutional: weakness, malaise. negative: fever, chills, sweats, other Eyes: negative: Pain, Vision Change, Conjunctivae Inflammation, Eyelid Inflammation, Redness, Other ENT: negative: Ear Pain, Ear Discharge, Nose Pain, Nose Discharge, Nose Congestion, Mouth Pain, Mouth Swelling, Throat Pain, Throat Swelling, Other Respiratory: negative: Cough, Dry, Shortness of Breath, Hemoptysis, SOB with Excertion, Pleuritic Pain, Sputum, Wheezing Cardiovascular: negative: chest pain, palpitations, orthopnea, paroxysmal nocturnal dyspnea, edema, light headedness, other Gastrointestinal: negative: Nausea, Vomiting, Abdominal Pain, Diarrhea, Constipation, Melena, Hematochezia, Other Genitourinary: negative: Dysuria, Frequency, Incontinence, Hematuria, Retention , Other Musculoskeletal: Leg Pain. negative: Neck Pain, Shoulder Pain, Arm Pain, Back Pain, Hand Pain, Foot Pain, Other Neurological: negative: Weakness, Numbness, Incoordination, Change in Speech, Confusion, Seizures, Other - Medications/Allergies Allergies/Adverse Reactions: Allergies Allergy/AdvReac Type Severity Reaction Status Date / Time codeine Allergy Verified 02/21/18 04:28 Medications: Current Medications Acetaminophen (Tylenol) 1,000 mg PO Q6H PRN PRN Reason: VELAZQUEZ/T > 101F/Mild Pain (1-3) Hydrocodone Bitart/Acetaminophen ([place] 5/325) 1 tab PO Q4H PRN PRN Reason: Mild Pain 1-3 Last Admin: 02/22/18 08:45 Dose: 1 tab Hydrocodone Bitart/Acetaminophen ([place] 5/325) 2 tab PO Q4H PRN PRN Reason: For Moderate Pain 4-6 Last Admin: 02/22/18 13:39 Dose: 2 tab Alogliptin Benzoate (Alogliptin) 12.5 mg PO BID-[facility] Last Admin: 02/22/18 08:37 Dose: 12.5 mg Anastrozole (Arimidex) 1 mg PO QPM [facility] Last Admin: 02/21/18 22:00 Dose: 1 mg Atorvastatin Calcium ([facility]) [facility] [place] Last Admin: 02/22/18 08:37 Dose: 40 mg Bupivacaine HCl (Marcaine) 5 ml EPIDURAL ONE PRN PRN Reason: UNCONTROLLED PAIN Stop: 02/23/18 12:46 Dextrose/Water (Dextrose 50%) 25 gm IVP PRN PRN PRN Reason: HYPOGLYCEMIA PROTOCOL Docusate Sodium (Colace) 200 mg PO BID [facility] Last Admin: 02/22/18 08:37 Dose: 200 mg Duloxetine HCl (Cymbalta) 60 mg PO DAILY [facility] Last Admin: 02/22/18 08:37 Dose: 60 mg Emollient Cream (Hydrocerin Cream) 0 gm TOP PRN PRN PRN Reason: Itching Enoxaparin Sodium (Lovenox) 40 mg SC 2100 [facility] Last Admin: 02/21/18 22:00 Dose: 40 mg Ferrous Sulfate (Feosol) 325 mg PO QAM-[facility] Last Admin: 02/22/18 08:37 Dose: 325 mg [facility]urosemide (Lasix) [facility] [place] Last Admin: 02/22/18 08:37 Dose: 40 mg Gabapentin (Neurontin) 300 mg PO BID [facility] Last Admin: 02/22/18 08:37 Dose: 300 mg Gabapentin (Neurontin) 400 mg PO BID [facility] Last Admin: 02/22/18 08:37 Dose: 400 mg Glucagon (Glucagon) 1 mg IM PRN PRN PRN Reason: HYPOGLYCEMIA PROTOCOL Sodium Chloride (Normal Saline 0.9%) 1,000 mls @ 100 mls/hr IV .Q10H [facility] Last Admin: 02/22/18 07:46 Dose: Not Given Insulin Glargine 20 units/ (Miscellaneous Medication) 0.2 mls @ 0 mls/hr SC HS [facility] Last Admin: 02/21/18 22:26 Dose: 0.2 mls Insulin Glargine 35 units/ (Miscellaneous Medication) 0.35 mls @ 0 mls/hr SC QAM [facility] Last Admin: 02/22/18 08:38 Dose: 0.35 mls Dextrose/Water (D5w) 1,000 mls @ 0 mls/hr IV INF PRN PRN Reason: HYPOGLYCEMIA PROTOCOL Bupivacaine HCl 10 ml/ Sodium (Chloride) 100 mls @ 6 mls/hr EPIDURAL INF [facility] Last Admin: 02/22/18 14:46 Dose: 100 mls Insulin Human Lispro (Humalog) 0 units SC .MILD SLIDING SCALE PRN; Protocol PRN Reason: MILD SLIDING SCALE Last Admin: 02/22/18 12:21 Dose: 5 unit Miscellaneous Information (Communication Order-Pharmacy) 1 each FS ASDIR [facility] Naloxone HCl (Narcan) 0.2 mg IV Q5MIN PRN PRN Reason: RR <=8 OR OBTUNDED/UNAROUSABLE Naloxone HCl (Narcan) 0.1 mg IVP Q15MIN PRN PRN Reason: URINARY RETENTION Ondansetron HCl (Zofran Odt) 4 mg PO Q6H PRN PRN Reason: Nausea/Vomiting Ondansetron HCl (Zofran) 4 mg IVP Q6H PRN PRN Reason: Nausea/Vomiting Sodium Chloride (Flush - Normal Saline) 10 ml IVF PRN PRN PRN Reason: Saline Flush Last Admin: 02/21/18 06:37 Dose: 10 ml Tizanidine HCl (Zanaflex) 4 mg PO DAILYPRN PRN PRN Reason: Muscle Spasm Tramadol HCl (Ultram) 50 mg PO Q6H PRN PRN Reason: Mild Pain 1-3 Trospium (Trospium) 20 mg PO BID [facility] Last Admin: 02/22/18 08:37 Dose: 20 mg
[2018-02-22] MEDS: Enoxaparin Sodium 40 MG/0.4 ML SYRINGE SC SCH (20:42)
[2018-02-22] MEDS: Anastrozole 1 MG TAB PO SCH (20:45)
[2018-02-22] MEDS: Insulin Glargine 20 UNITS in Pre-Filled Syringe 1 EACH SC SCH (21:06)
[2018-02-23] MEDS: Sodium Chloride 0.9% 1,000 ML IV SCH ×3 (02:25→23:08)
[2018-02-23] MEDS: HumaLOG 300 UNITS/3 ML VIAL SC PRN (05:50)
[2018-02-23 05:56] LABS: Mean Corpuscular HGB CONC 33.4 g/dL (32.0-36.0); Mean Corpuscular Hemoglobin 30.3 pg (27.0-31.0); Mean Corpuscular Volume 90.6 fL (78.0-98.0); Mean Platelet Volume 6.2 fL (7.4-10.4); Platelet Count 188 thou/uL (130-400); RBC Distribution Width 12.2 % (11.5-14.5); Red Blood Cell (RBC) Count 2.99 mill/uL (4.20-5.40); White Blood Cell (WBC) Count 6.6 thou/uL (4.8-10.8)
[2018-02-23] MEDS ORDERED: risperiDONE 0.25 MG TAB PO SCH ×2 (08:30→21:00)
[2018-02-23] MEDS ORDERED: RISPERIDONE 1 MG PO SCH (09:00)
[2018-02-23] MEDS: Bupivacaine 10 ML in Sodium Chloride 0.9% 90 ML EPIDURAL SCH (09:03)
[2018-02-23] MEDS: Alogliptin 6.25 MG TAB PO SCH ×2 (09:03→17:59)
[2018-02-23] MEDS: Ferrous Sulfate 325 MG TAB PO SCH (09:04)
[2018-02-23] MEDS: Furosemide 40 MG TAB PO SCH (09:04)
[2018-02-23] MEDS: Atorvastatin Calcium 40 MG TAB PO SCH (09:04)
[2018-02-23] MEDS: TROSPIUM 20 MG TABLET PO SCH ×2 (09:04→22:08)
[2018-02-23] MEDS: DULoxetine 60 MG CAP PO SCH (09:04)
[2018-02-23] MEDS: Docusate 100 MG CAP PO SCH ×2 (09:04→22:07)
[2018-02-23] MEDS: Insulin Glargine 35 UNITS in Pre-Filled Syringe 1 EACH SC SCH (09:05)
[2018-02-23] MEDS: Gabapentin 400 MG CAP PO SCH ×2 (09:05→22:08)
[2018-02-23] MEDS: Gabapentin 300 MG CAP PO SCH ×2 (09:05→22:08)
[2018-02-23] MEDS ORDERED: HYDROcodone/Acetaminophen 10/325 mg Tablet PO PRN ×2 (11:46)
[2018-02-23] MEDS ORDERED: Ibuprofen 800 MG TAB PO PRN (11:46)
--- NOTE | 2018-02-23 14:11 | PDOC.PN ---
- Subjective Encounter Start Date: 02/23/18 Encounter Start Time: 14:08 Subjective: no new complaints.feels well - Objective MAR Reviewed: Yes Vital Signs & Weight: Vital Signs (12 hours) Temp Pulse Resp BP Pulse Ox 02/23/18 11:24 98.6 F 103 H 20 136/65 95 02/23/18 07:30 99.0 F 96 18 123/75 94 L 02/23/18 03:52 99.1 F 104 H 16 139/83 91 L Weight Weight 195 lb 3.2 oz I&O: 02/22/18 02/23/18 02/24/18 06:59 06:59 06:59 Intake Total 840 2218 Output Total 750 2300 Balance 90 -82 Result Diagrams: 02/23/18 05:26 02/22/18 05:18 Additional Labs: Accuchecks 02/23/18 02/23/18 02/22/18 11:32 05:32 20:44 POC Glucose 338 H 274 H 151 H 02/22/18 15:17 POC Glucose 198 H Laboratory Tests 02/08/18 02/13/18 02/21/18 09:08 11:53 10:03 Creatinine 1.43 H 1.68 H 1.70 H 02/22/18 05:18 Creatinine 1.40 H Phys Exam - Physical Examination Constitutional: NAD HEENT: PERRLA, moist MMs, sclera anicteric, oral pharynx no lesions Neck: no nodes, no JVD, supple, full ROM Respiratory: no wheezing, no rales, no rhonchi, clear to auscultation bilateral Cardiovascular: RRR, no significant murmur, no rub Gastrointestinal: soft, non-tender, no distention, positive bowel sounds Musculoskeletal: no edema, pulses present Neurological: non-focal, normal sensation, moves all 4 limbs Psychiatric: normal affect, A&O x 3 Skin: no rash Dx/Plan (1) PACO (acute kidney injury) Code(s): N17.9 - ACUTE KIDNEY FAILURE, UNSPECIFIED Status: Acute (2) s/p left total hip arthroplasty Status: Acute (3) Acute respiratory failure with hypoxia Code(s): J96.01 - ACUTE RESPIRATORY FAILURE WITH HYPOXIA Status: Resolved Comment: is post op left hip replacement (4) NIELS (obstructive sleep apnea) Code(s): G47.33 - OBSTRUCTIVE SLEEP APNEA (ADULT) (PEDIATRIC) Status: Chronic Comment: on cpap (5) Anemia Code(s): D64.9 - ANEMIA, UNSPECIFIED Status: Chronic Qualifiers: Anemia type: unspecified type (6) Bipolar disorder Code(s): F31.9 - BIPOLAR DISORDER, UNSPECIFIED Status: Chronic Qualifiers: Active/Remission status: remission status unspecified (7) Cardiomyopathy Code(s): I42.9 - CARDIOMYOPATHY, UNSPECIFIED Status: Chronic Qualifiers: Cardiomyopathy type: ischemic Qualified Code(s): I25.5 - Ischemic cardiomyopathy Comment: EF around 40% (8) Diabetes mellitus type 2 in obese Code(s): E11.9 - TYPE 2 DIABETES MELLITUS WITHOUT COMPLICATIONS; E66.9 - OBESITY , UNSPECIFIED Status: Chronic (9) Dyslipidemia Code(s): E78.5 - HYPERLIPIDEMIA, UNSPECIFIED Status: Chronic (10) History of breast cancer in female Code(s): Z85.3 - PERSONAL HISTORY OF MALIGNANT NEOPLASM OF BREAST Status: Chronic Comment: prior right mastectomy.On Arimidex (11) Hx of coronary artery disease Code(s): Z86.79 - PERSONAL HISTORY OF OTHER DISEASES OF THE CIRCULATORY SYSTEM Status: Chronic (12) h/o aicd Status: Chronic - Plan PT/OT, out of bed/ambulate, DVT proph w/SCDs Hemodynamically stable.cont meds as below -: encouraged to let epidural stopped to guage pain level -: check BMp in am. -: add feso4 for DC for post-op blood loss KEELY -: IM team will follow * . Review of Systems - Review of Systems Constitutional: negative: fever, chills, sweats, weakness, malaise, other Respiratory: negative: Cough, Dry, Shortness of Breath, Hemoptysis, SOB with Excertion, Pleuritic Pain, Sputum, Wheezing Cardiovascular: negative: chest pain, palpitations, orthopnea, paroxysmal nocturnal dyspnea, edema, light headedness, other Gastrointestinal: negative: Nausea, Vomiting, Abdominal Pain, Diarrhea, Constipation, Melena, Hematochezia, Other Genitourinary: negative: Dysuria, Frequency, Incontinence, Hematuria, Retention , Other Musculoskeletal: negative: Neck Pain, Shoulder Pain, Arm Pain, Back Pain, Hand Pain, Leg Pain, Foot Pain, Other Neurological: negative: Weakness, Numbness, Incoordination, Change in Speech, Confusion, Seizures, Other - Medications/Allergies Allergies/Adverse Reactions: Allergies Allergy/AdvReac Type Severity Reaction Status Date / Time codeine Allergy Verified 02/21/18 04:28 Medications: Current Medications Acetaminophen (Tylenol) 1,000 mg PO Q6H PRN PRN Reason: VELAZQUEZ/T > 101F/Mild Pain (1-3) Hydrocodone Bitart/Acetaminophen (Muddy 10/325) 1 tab PO Q4H PRN PRN Reason: Pain 2-4 Hydrocodone Bitart/Acetaminophen (Muddy 10/325) 2 tab PO Q4H PRN PRN Reason: Pain 5-10 Alogliptin Benzoate (Alogliptin) 12.5 mg PO BID-[facility] Last Admin: 02/23/18 09:03 Dose: 12.5 mg Anastrozole (Arimidex) 1 mg PO QPM [facility] Last Admin: 02/22/18 20:45 Dose: 1 mg Atorvastatin Calcium (Lipitor) 40 mg PO [facility] Last Admin: 02/23/18 09:04 Dose: 40 mg Dextrose/Water (Dextrose 50%) 25 gm IVP PRN PRN PRN Reason: HYPOGLYCEMIA PROTOCOL Docusate Sodium (Colace) 200 mg PO BID [facility] Last Admin: 02/23/18 09:04 Dose: 200 mg Duloxetine HCl (Cymbalta) 60 mg PO DAILY [facility] Last Admin: 02/23/18 09:04 Dose: 60 mg Emollient Cream (Hydrocerin Cream) 0 gm TOP PRN PRN PRN Reason: Itching Enoxaparin Sodium (Lovenox) 40 mg SC 2100 [facility] Last Admin: 02/22/18 20:42 Dose: 40 mg Ferrous Sulfate (Feosol) 325 mg PO QAM-[facility] Last Admin: 02/23/18 09:04 Dose: 325 mg [facility]urosemide (Lasix) [facility] Last Admin: 02/23/18 09:04 Dose: 40 mg Gabapentin (Neurontin) 300 mg PO BID [facility] Last Admin: 02/23/18 09:05 Dose: 300 mg Gabapentin (Neurontin) 400 mg PO BID [facility] Last Admin: 02/23/18 09:05 Dose: 400 mg Glucagon (Glucagon) 1 mg IM PRN PRN PRN Reason: HYPOGLYCEMIA PROTOCOL Sodium Chloride (Normal Saline 0.9%) 1,000 mls @ 100 mls/hr IV .Q10H [facility] Last Admin: 02/23/18 12:26 Dose: Not Given Insulin Glargine 20 units/ (Miscellaneous Medication) 0.2 mls @ 0 mls/hr SC HS [facility] Last Admin: 02/22/18 21:06 Dose: 0.2 mls Insulin Glargine 35 units/ (Miscellaneous Medication) 0.35 mls @ 0 mls/hr SC QAM [facility] Last Admin: 02/23/18 09:05 Dose: 0.2 mls Dextrose/Water (D5w) 1,000 mls @ 0 mls/hr IV INF PRN PRN Reason: HYPOGLYCEMIA PROTOCOL Ibuprofen (Motrin) 800 mg PO BIDPRN PRN PRN Reason: PAIN 1ST LINE Insulin Human Lispro (Humalog) 0 units SC .MILD SLIDING SCALE PRN; Protocol PRN Reason: MILD SLIDING SCALE Last Admin: 02/22/18 21:08 Dose: 2 unit Miscellaneous Information (Communication Order-Pharmacy) 1 each FS ASDIR [facility] Naloxone HCl (Narcan) 0.2 mg IV Q5MIN PRN PRN Reason: RR <=8 OR OBTUNDED/UNAROUSABLE Naloxone HCl (Narcan) 0.1 mg IVP Q15MIN PRN PRN Reason: URINARY RETENTION Ondansetron HCl (Zofran Odt) 4 mg PO Q6H PRN PRN Reason: Nausea/Vomiting Ondansetron HCl (Zofran) 4 mg IVP Q6H PRN PRN Reason: Nausea/Vomiting Risperidone (Risperidone) 0.5 mg PO [facility] Sodium Chloride (Flush - Normal Saline) 10 ml IVF PRN PRN PRN Reason: Saline Flush Last Admin: 02/21/18 06:37 Dose: 10 ml Tizanidine HCl (Zanaflex) 4 mg PO DAILYPRN PRN PRN Reason: Muscle Spasm Tramadol HCl (Ultram) 50 mg PO Q6H PRN PRN Reason: Mild Pain 1-3 Trospium (Trospium) 20 mg PO BID [facility] Last Admin: 02/23/18 09:04 Dose: 20 mg
[2018-02-23] MEDS ORDERED: risperiDONE 1 MG TAB PO SCH (21:00)
[2018-02-23] MEDS: Insulin Glargine 20 UNITS in Pre-Filled Syringe 1 EACH SC SCH (22:06)
[2018-02-23] MEDS: Enoxaparin Sodium 40 MG/0.4 ML SYRINGE SC SCH (22:07)
[2018-02-23] MEDS: Anastrozole 1 MG TAB PO SCH (22:20)
[2018-02-24] MEDS: Docusate 100 MG CAP PO SCH (08:37)
[2018-02-24] MEDS: Insulin Glargine 35 UNITS in Pre-Filled Syringe 1 EACH SC SCH (08:37)
[2018-02-24] MEDS: Gabapentin 300 MG CAP PO SCH (08:37)
[2018-02-24] MEDS: Gabapentin 400 MG CAP PO SCH (08:37)
[2018-02-24] MEDS: DULoxetine 60 MG CAP PO SCH (08:37)
[2018-02-24] MEDS: Furosemide 40 MG TAB PO SCH (08:37)
[2018-02-24] MEDS: TROSPIUM 20 MG TABLET PO SCH (08:37)
[2018-02-24] MEDS: Atorvastatin Calcium 40 MG TAB PO SCH (08:37)
[2018-02-24] MEDS: Alogliptin 6.25 MG TAB PO SCH (08:37)
[2018-02-24] MEDS: Ferrous Sulfate 325 MG TAB PO SCH (08:37)
[2018-02-24] MEDS: Sodium Chloride 0.9% 1,000 ML IV SCH (12:07)
[2018-02-24 13:48] LABS: Anion Gap 12 mmol/L (10-20); BUN (Urea Nitrogen) 24 mg/dL (9.8-20.1); Calc. Creatinine Clearance 64 mL/min (70-130); Carbon Dioxide 28 mmol/L (23-31); Chloride 100 mmol/L (98-107); Estimated GFR-MDRD 45; Potassium 3.6 mmol/L (3.5-5.1); Sodium 136 mmol/L (136-145)
[2018-02-24 13:49] LABS: Calcium 8.4 mg/dL (7.8-10.44); Glucose 208 mg/dL (80-115)
--- NOTE | 2018-02-24 14:41 | PDOC.EVN ---
Event Note - Event Note Event Note: Chart reviwed. Care discussed w RN/ Pt accpeted at [facility] swing bed today and to be DCed per primary team.Had some confusion last night but clear this morning. OK to DC from IM stand point.will sign off.Pls call w Qs
[2018-02-24 15:51] VITALS: BP 126/79; TEMP 98.4
== END 2018-02-24 17:04 | disposition swing bed (61) | DRG 469 ==
LOC: SURG A 02-20 11:19 → SJJU 02-20 17:37 → IMCU/EMU 02-20 20:16 → SURG B 02-21 18:40 → SURG A 02-22 07:03 → SURG B 02-22 07:06
PROVIDERS: ADMIT Orthopaedic Surgery; ATTEND Orthopaedic Surgery
PROC: 0SRB0JA Replacement of Left Hip Joint with Synthetic Substitute, Uncemented, Open Approach (ICD-10-PCS; principal; 2018-02-20)
PROC: 30233N1 Transfusion of Nonautologous Red Blood Cells into Peripheral Vein, Percutaneous Approach (ICD-10-PCS; 2018-02-20)
PROC: 3E0234Z Introduction of Serum, Toxoid and Vaccine into Muscle, Percutaneous Approach (ICD-10-PCS; 2018-02-24)
DX: M16.52 Unilateral post-traumatic osteoarthritis, left hip (principal); J96.01 Acute respiratory failure with hypoxia; M87.252 Osteonecrosis due to previous trauma, left femur; D62 Acute posthemorrhagic anemia; N17.9 Acute kidney failure, unspecified; E11.9 Type 2 diabetes mellitus without complications; E78.5 Hyperlipidemia, unspecified; I25.10 Atherosclerotic heart disease of native coronary artery without angina pectoris; I25.5 Ischemic cardiomyopathy; Z79.84 Long term (current) use of oral hypoglycemic drugs; Z79.82 Long term (current) use of aspirin; Z85.3 Personal history of malignant neoplasm of breast; Z92.21 Personal history of antineoplastic chemotherapy; Z92.3 Personal history of irradiation; K21.9 Gastro-esophageal reflux disease without esophagitis; I11.0 Hypertensive heart disease with heart failure; I50.9 Heart failure, unspecified; G47.33 Obstructive sleep apnea (adult) (pediatric); H91.91 Unspecified hearing loss, right ear; F41.9 Anxiety disorder, unspecified; Z90.11 Acquired absence of right breast and nipple; S32.43 Fracture of anterior column [iliopubic] of acetabulum; F31.9 Bipolar disorder, unspecified; Z95.810 Presence of automatic (implantable) cardiac defibrillator; Z23 Encounter for immunization
CPT/HCPCS: 36415; 36416; 36430; 80048; 85027; 86850; 86900; 86901; C1776; G8978-GP-CM; G8979-GP-CI; G8987-GO-CM; G8988-GO-CJ; J1200; J1650; J1885; J2250; J2310; J2704; J3010; J3370; J3490; J7050; P9016

== ENCOUNTER 2018-02-13 11:17 | Outpatient (CLI) | payer MEDICARE ==
[2018-02-13 12:37] LABS: Hemoglobin 10.9 g/dL (12.0-16.0); Mean Corpuscular HGB CONC 32.2 g/dL (32.0-36.0); Mean Corpuscular Hemoglobin 28.8 pg (27.0-31.0); Mean Corpuscular Volume 89.2 fL (78.0-98.0); Mean Platelet Volume 6.1 fL (7.4-10.4); Platelet Count 242 thou/uL (130-400); RBC Distribution Width 12.1 % (11.5-14.5); Red Blood Cell (RBC) Count 3.79 mill/uL (4.20-5.40); White Blood Cell (WBC) Count 5.4 thou/uL (4.8-10.8)
[2018-02-13 12:45] LABS: PTT 36.5 SEC (22.9-36.1); Prothrombin Time 13.2 SEC (12.0-14.7)
[2018-02-13 12:56] LABS: Anion Gap 13 mmol/L (10-20); BUN (Urea Nitrogen) 34 mg/dL (9.8-20.1); Calc. Creatinine Clearance 0 mL/min (70-130); Calcium 9.3 mg/dL (7.8-10.44); Carbon Dioxide 29 mmol/L (23-31); Chloride 101 mmol/L (98-107); Estimated GFR-MDRD 30; Glucose 242 mg/dL (80-115); Potassium 4.4 mmol/L (3.5-5.1); Sodium 139 mmol/L (136-145)
--- NOTE | 2018-02-19 19:36 | EKG ---
Test Reason : Blood Pressure : / mmHG Vent. Rate : 085 BPM Atrial Rate : 085 BPM P-R Int : 136 ms QRS Dur : 082 ms QT Int : 384 ms P-R-T Axes : 022 -02 -19 degrees QTc Int : 456 ms Normal sinus rhythm Septal infarct (cited on or before 06-MAY-2016) Abnormal ECG When compared with ECG of 27-DEC-2017 15:33, T wave inversion now evident in Inferior leads Confirmed by Sol YANG ([id number]) on 02/19/2018 7:36:18 PM Referred By: TERESA Confirmed By:Sol YANG
== END 2018-02-13 11:18 | disposition home or self-care (01) ==
LOC: LABBT 11:17
PROVIDERS: ATTEND Orthopaedic Surgery
DX: Z01.812 Encounter for preprocedural laboratory examination (principal); S32.402A Unspecified fracture of left acetabulum, initial encounter for closed fracture
CPT/HCPCS: 80048; 85027; 85610; 85730; 86850; 86900; 86901; 93005; 93010

== ENCOUNTER 2018-02-16 08:25 | Day surgery (SDC) | payer MEDICARE ==
[~2018-02-16 08:25] MED LIST changes: +Cyclopentolate 1% Opth Drop 2 ML BOT FS SCH; +EPINEPHrine 0.3 MG, Dextrose 50% 3 ML in Ophthalmic Irrigation Solution 500 ML FS SCH; -ISOVUE-370 76%-LOCM 1 ML ONE; +Phenylephrine 2.5% Ophth Soln 5 ML BOT FS SCH
[2018-02-16] MEDS ORDERED: Phenylephrine 2.5% Ophth Soln 5 ML BOT ONE (09:23)
[2018-02-16] MEDS ORDERED: Cyclopentolate 1% Opth Drop 2 ML BOT ONE (09:23)
[2018-02-16] MEDS ORDERED: Insulin Regular 300 UNITS/3 ML VIAL ONE (10:06)
[2018-02-16] MEDS ORDERED: Fentanyl 100 MCG/2 ML VIAL ONE (11:00)
[2018-02-16] MEDS ORDERED: PROPOFOL 20 ML ONE (11:00)
--- NOTE | 2018-02-16 12:15 | OP ---
DATE OF PROCEDURE: 02/16/2018 PREOPERATIVE DIAGNOSIS: Vitreous hemorrhage, proliferative diabetic retinopathy. POSTOPERATIVE DIAGNOSIS: Vitreous hemorrhage, proliferative diabetic retinopathy. PROCEDURE: Pars plana vitrectomy and membrane peel, right eye. SURGEON: Dr. All Fagan ANESTHESIA: Local with monitored anesthesia care. PROCEDURE IN DETAIL: The patient was identified in the preoperative holding area. Appropriate infor med consent for the planned surgical procedure on the right eye had been obtained. The patient was t ransported to the operative suite. Appropriate cardiopulmonary monitoring was established. Local an esthesia was obtained using retrobulbar and modified Van Lint lid block using 50:50 mixture of 4% lid ocaine, 0.75% bupivacaine. The patient was prepped and draped in the usual sterile manner for ophtha lmic surgery on the right eye. Lid speculum was placed in the right eye. The 25-gauge trocars place d in conjunctiva and sclera supratemporally, inferotemporally, and supranasally. Infusion line was p laced inferotemporally. Light pipe and vitreous cutter were inserted into the eye. Core vitrectomy was performed. Proliferation was noted on the retina with limited tractional retinal detachment supe rior nasally. Proliferation was trimmed from the retinal surface. Olvera retinal photocoagulation was placed into all non-macular areas of the retina. Trocars were removed and eye was noted to retain pr essure well. Retrobulbar Kenalog and subconjunctival Ancef were placed. Antibiotic ointment placed, and the eye was patched and shielded. The patient was taken to the postoperative recovery unit in g ood condition having suffered no immediate perioperative complications. DISCHARGE INSTRUCTIONS: The patient was instructed to keep patch and shield on, avoid lifting or anisha ding, and follow up in the morning with Dr. Fagan.
[2018-02-16] MEDS ORDERED: Bupivacaine 0.75% 10 ML AMP ONE (13:23)
[2018-02-16] MEDS ORDERED: Lidocaine 4% PF 5 ML AMP ONE (13:23)
[2018-02-16] MEDS ORDERED: PROPOFOL 200 MG/20 ML VIAL ONE (13:23)
[2018-02-16] MEDS ORDERED: Triamcinolone 40 MG/ML VIAL ONE (13:23)
[2018-02-16] MEDS ORDERED: Lidocaine 1% PF 5 ML VIAL ONE ×2 (13:23)
[2018-02-16] MEDS ORDERED: CEFAZOLIN 1 GM VIAL ONE (13:23)
[2018-02-16] MEDS ORDERED: Maxitrol 0.1% Opth Oint 3.5 GM TUBE ONE (13:23)
== END 2018-02-16 13:08 | disposition home or self-care (01) ==
LOC: SDC 08:25
PROVIDERS: ATTEND Ophthalmology Retina Specialist
PROC: 08T43ZZ Resection of Right Vitreous, Percutaneous Approach (ICD-10-PCS; principal; 2018-02-16)
PROC: 08QE3ZZ Repair Right Retina, Percutaneous Approach (ICD-10-PCS; 2018-02-16)
DX: H43.11 Vitreous hemorrhage, right eye (principal); E11.3531 Type 2 diabetes mellitus with proliferative diabetic retinopathy with traction retinal detachment not involving the macula, right eye; I10 Essential (primary) hypertension; Z79.4 Long term (current) use of insulin; Z79.82 Long term (current) use of aspirin; Z79.899 Other long term (current) drug therapy; Z88.5 Allergy status to narcotic agent
CPT/HCPCS: 36416; J0171; J0690; J1815; J2001; J2704; J3010; J3301; J3490

== ENCOUNTER 2018-05-12 09:55 | Outpatient (CLI) | payer MEDICARE ==
--- NOTE | 2018-05-12 17:56 | NM ---
NUCLEAR MEDICINE BRAIN IMAGING TOMOGRAPHIC EXAM: CLINICAL HISTORY: A 68-year-old female with Parkinson disease. COMPARISON: No prior imaging comparison available. RADIOPHARMACEUTICAL: Iodine 123 Ioflupane 4.5 millicuries IV. Potassium iodide 130 mg p.o. FINDINGS: Scintigraphic imaging reveals symmetric distribution of radiotracer activity within the striata, whic h demonstrates an appropriate crescent shape, bilaterally. IMPRESSION: Normal scan, inconsistent with a parkinsonian syndrome. POS: [facility]
== END 2018-05-12 09:56 | disposition home or self-care (01) ==
LOC: NM 09:55
PROVIDERS: ATTEND Psychiatry & Neurology Neurology
DX: G20 Parkinson's disease (principal)
CPT/HCPCS: 78607; A9584

== ENCOUNTER 2018-05-28 19:24 | Emergency (ER) | payer MEDICARE ==
[2018-05-28 20:47] LABS: #Basophils 0.1 thou/uL (0.0-0.2); #Eosinphils 0.1 thou/uL (0.0-0.7); #Lymphocytes 1.4 thou/uL (1.20-3.40); #Monocytes 0.7 thou/uL (0.11-0.59); #Neutrophils 4.7 thou/uL (1.40-6.50); %Eosinophils 1.3 % (0.0-10.0); %Lymphocytes 19.7 % (21.0-51.0); %Monocytes 10.2 % (0.0-10.0); %Neutrophils 67.7 % (42.0-75.0); Hemoglobin 11.9 g/dL (12.0-16.0); Mean Corpuscular HGB CONC 33.8 g/dL (32.0-36.0); Mean Corpuscular Hemoglobin 29.9 pg (27.0-31.0); Mean Corpuscular Volume 88.4 fL (78.0-98.0); Mean Platelet Volume 6.2 fL (7.4-10.4); Platelet Count 265 thou/uL (130-400); RBC Distribution Width 13.2 % (11.5-14.5); Red Blood Cell (RBC) Count 3.97 mill/uL (4.20-5.40)
[2018-05-28 21:07] LABS: ALT (SGPT) 13 U/L (8-55); AST (SGOT) 11 U/L (5-34); Albumin 3.6 g/dL (3.4-4.8); Alkaline Phosphatase 86 U/L (40-150); Anion Gap 16 mmol/L (10-20); BUN (Urea Nitrogen) 27 mg/dL (9.8-20.1); Bilirubin, Total 0.3 mg/dL (0.2-1.2); Calc. Creatinine Clearance 0 mL/min (70-130); Calcium 9.3 mg/dL (7.8-10.44); Carbon Dioxide 23 mmol/L (23-31); Chloride 103 mmol/L (98-107); Estimated GFR-MDRD 40; Globulin 3.1 g/dL (2.4-3.5); Glucose 176 mg/dL (80-115); Potassium 3.8 mmol/L (3.5-5.1); Protein, Total 6.7 g/dL (6.0-8.3); Sodium 138 mmol/L (136-145)
--- NOTE | 2018-05-28 22:49 | RAD ---
FRONTAL RADIOGRAPH CHEST: Date: 05-28-18 Comparison: 12-27-17 History: Shortness of breath, history of hernia. FINDINGS: Shallow inspiration limited detailed assessment of the lung bases. Mild increased linear density in t he medial left base noted which may represent vascular prominence, volume loss, or mild infiltrate. M idline sternotomy wires and mediastinal clips are present. Stable transvenous AICD. IMPRESSION: Shallow inspiration with mild increased density in the medial left lung base as detailed above. POS: [facility]
== END 2018-05-28 22:50 | disposition home or self-care (01) ==
LOC: ERS 19:24
DX: R06.02 Shortness of breath (principal); E11.9 Type 2 diabetes mellitus without complications; E78.5 Hyperlipidemia, unspecified; I11.0 Hypertensive heart disease with heart failure; I50.9 Heart failure, unspecified; E66.9 Obesity, unspecified; F41.9 Anxiety disorder, unspecified; F31.9 Bipolar disorder, unspecified; Z79.4 Long term (current) use of insulin; Z79.899 Other long term (current) drug therapy; Z79.82 Long term (current) use of aspirin
CPT/HCPCS: 36415; 71045; 80053; 83880; 84484; 85025; 93005

== ENCOUNTER 2019-01-08 22:07 | Observation (INO) | payer MEDICARE ==
--- NOTE | 2019-01-09 00:23 | HP ---
PRIMARY CARE PHYSICIAN: [facility] Call admission. REASON FOR ADMISSION: Transferred from [facility] for altered mental status, urinary tract infection. HISTORY OF PRESENT ILLNESS: A 68-year-old female, who has underlying psychiatric disorder including anxiety, depression, bipolar disorder, who was recently hospitalized at [facility] and released home 3 days ago. The patient was started on new medication. The patient was given Haldol, Cymbalta as well as another medication. The patient's family member is not able to provide that medication name. After that, the patient was more lethargic, sleepy at home. She was not able to function and that is why she was brought to [facility], where she had CT brain which was unremarkable. Chest x-ray was unremarkable. Her urinalysis was suspicious for urinary tract infection though the patient did not report any UTI symptoms and she did not have any fever or chills at home. She did not have any nausea, vomiting, diarrhea. She did not have any other complaints including chest pain, palpitation, syncope, fall, focal motor or sensory symptoms. REVIEW OF SYSTEMS: All review of systems tried to review with the patient, but unable to review at this point because the patient is lethargic, sleepy, and review of system is not reliable from the patient. PAST MEDICAL HISTORY: Chronic diastolic heart failure, diabetes type 2, hypertension, dyslipidemia, history of breast cancer, treated with right mastectomy and lymph node removal, obesity, peripheral vascular disease. PAST SURGICAL HISTORY: Appendicectomy, cholecystectomy, x3, hysterectomy, right mastectomy, CABG x3, defibrillator placement, left hip surgery. PAST PSYCHIATRIC HISTORY: Anxiety, depression, bipolar disorder. SOCIAL HISTORY: The patient lives at home with family. No history of tobacco, alcohol, or illicit drug abuse. ALLERGIES: CODEINE. CURRENT HOME MEDICATIONS: 1. Anastrozole 1 mg daily. 2. Aspirin 81 mg daily. 3. Lipitor 40 mg p.o. at bedtime. 4. Ferrous sulfate 325 mg p.o. daily. 5. Lasix 40 mg p.o. daily. 6. Flexeril 10 mg as needed. 7. Cymbalta 60 mg twice daily. 8. Gabapentin 800 mg t.i.d. 9. Janumet 50/500 one tablet twice daily. 10. Fosamax 70 mg every week. 11. Lantus insulin 35 units subcu in the morning. 12. Humalog insulin as per sliding scale. 13. Haldol 5 mg daily. 14. Cogentin 2 mg p.o. twice daily. 15. Linzess p.o. daily. EMERGENCY ROOM COURSE: The patient was given Macrobid at [facility] and the patient received IV fluid here. FAMILY HISTORY: No significant family history of CAD, CVA or cancer. PHYSICAL EXAMINATION: VITAL SIGNS: On arrival, blood pressure 132/61, pulse 76, respiratory rate 16, temperature 97.6, saturation 95% on room air, weight 99 kg. GENERAL: The patient is currently sleepy, lethargic, drowsy. No obvious acute distress. HEENT: Head; normocephalic, atraumatic. Eyes; pupils round, reactive to light. Extraocular muscle intact. ENT; dry mucous membranes. No oral lesion. No pharyngeal erythema. No exudate. NECK: Supple. No JVD. No thyromegaly. No carotid bruit. No jugular venous distention. LUNGS: Clear to auscultation without any rhonchi or rales. CARDIAC: S1, S2. Regular without any murmur. No gallop. No rub. ABDOMEN: Soft, obesity present. Bowel sounds present. Nontender. Nondistended. No organomegaly. No mass. No suprapubic tenderness. BACK: Unremarkable. No CVA tenderness. EXTREMITIES: Upper extremities, passive movement of all joints is normal. Lower extremities, no edema. Good distal pulsation. NEUROLOGIC: Unable to assess at this point because the patient is not cooperative. SIGNIFICANT LABORATORY DATA: Chest x-ray based on my review, no acute cardiopulmonary process. CT brain based on my review, no acute intracranial process. CBC; WBC 8.1, hemoglobin 11.0, platelet 243. BMP; sodium 144, potassium 3.8, chloride 104, carbon dioxide 28, anion gap 16, BUN 25, creatinine 1.70, glucose 116, calcium 9.3, lactic acid 2.2, magnesium 1.6. LFT; AST 31, ALT 28, alkaline phosphatase 68, albumin 3.5. BNP 80.2. Troponin I 0.016. TSH 1.30. Urinalysis consistent with UTI. Urine drug screen negative. Serum drug screen negative. ASSESSMENT: 1. Altered mental status. 2. Urinary tract infection. 3. Chronic kidney disease, stage 3. 4. Normocytic normochromic anemia. 5. Diabetes, type 2. 6. Obesity. 7. Dyslipidemia. 8. Coronary artery disease. 9. Anxiety, depression, and bipolar disorder. 10. History of breast cancer. 11. Osteoporosis. 12. Chronic low back pain. PLAN: Observation to medical floor. Continue Rocephin 1 g q.24 hours. Follow up on urine culture results. The patient does not have any focal neurological deficit and her CT brain is negative. We are expecting her altered mental status most likely related with a new medication started at [facility] as well as possibly underlying urinary tract infection. The patient will be given IV fluid overnight and we will observe her for 24 hours. If she is back to her baseline level, then we will consider discharging her home tomorrow. Deep venous thrombosis prophylaxis not needed because we are expecting discharge in 24 hours. Gastrointestinal prophylaxis, Pepcid 20 mg p.o. b.i.d. Code status, the patient will be full code. The patient does not have any obvious surrogate decision maker. Her home medication will be reconciled. Job ID: [id number] [facility]
[2019-01-09] MEDS ORDERED: Dextrose 50% Abboject 50 ML SYRINGE SLOW IVP PRN (02:05)
[2019-01-09] MEDS ORDERED: HumaLOG 300 UNITS/3 ML VIAL SC PRN (02:05)
[2019-01-09] MEDS ORDERED: Bisacodyl 10 MG SUPP PR PRN (02:05)
[2019-01-09] MEDS ORDERED: Dextrose 5% in Water 1,000 ML IV PRN (02:05)
[2019-01-09] MEDS ORDERED: Sodium Chloride 0.9% 1,000 ML IV SCH (02:05)
[2019-01-09] MEDS ORDERED: Calcium Carbonate 500 MG ChewTAB PO PRN (02:05)
[2019-01-09] MEDS ORDERED: Acetaminophen 325 MG TAB PO PRN (02:05)
[2019-01-09] MEDS ORDERED: Loperamide HCl 2 MG CAP PO PRN (02:05)
[2019-01-09] MEDS ORDERED: Senokot S 8.6-50 MG TAB PO PRN (02:05)
[2019-01-09] MEDS ORDERED: Ondansetron PF 4 MG/2 ML Vial IVP PRN (02:58)
[2019-01-09] MEDS ORDERED: Ondansetron ODT 4 MG TAB SL PRN (02:58)
[2019-01-09] MEDS ORDERED: cefTRIAXone\\ROCEPHIN 1 GM in Sodium Chloride 0.9% 100 ML IVPB SCH (03:00)
[2019-01-09 05:14] VITALS: BMI 35.4
[2019-01-09] MEDS: Saccharomyces boulardii 250 MG CAP PO SCH (08:15)
[2019-01-09] MEDS ORDERED: Nitrofurantoin Monohyd/M-Cryst 100 MG CAP PO SCH (09:00)
[2019-01-09] MEDS ORDERED: Famotidine 20 MG TAB PO SCH (09:00)
[2019-01-09] MEDS: HumaLOG 300 UNITS/3 ML VIAL SC PRN (12:28)
--- NOTE | 2019-01-09 15:01 | PDOC.HOSPP ---
- Subjective Encounter Date: 01/09/19 Encounter Time: 14:49 Subjective: Patient found resting comfortably. Denies any pain or other complaints. Some confused speech, reportedly at baseline. Recently discharged from [facility] 3 days ago and brought in due to AMS, more lethargic than normal. Family requesting SNF placement. Per [facility], does not qualify for placement due to insurance reasons. Patient was aggressive earlier, kicked RN when attempted to obtain bladder scan. Also pulled her IV line out. - Objective Vital Signs & Weight: Vital Signs (12 hours) Temp Pulse Resp BP Pulse Ox 01/09/19 11:00 98.0 F 91 20 143/80 H 97 01/09/19 07:47 97.5 F L 76 18 160/81 H 95 01/09/19 04:00 97.9 F 76 18 156/85 H 98 Weight Weight 194 lb I&O: 01/08/19 01/09/19 01/10/19 06:59 06:59 06:59 Intake Total 757 Balance 757 Additional Labs: Accuchecks 01/09/19 01/09/19 11:00 05:12 POC Glucose 231 H 80 Hospitalist ROS - Review of Systems ROS unobtainable: due to mental status (patient denies all complaints, unreliable historian given psych history but appears to be in no distress and at baseline) Constitutional: denies: fever, chills, sweats, weakness, malaise, other Eyes: denies: pain, vision change, conjunctivae inflammation, eyelid inflammation, redness, other ENT: denies: ear pain, ear discharge, nose pain, nose discharge, nose congestion , mouth pain, mouth swelling, throat pain, throat swelling, other Respiratory: denies: cough, dry, shortness of breath, hemoptysis, SOB with excertion, pleuritic pain, sputum, wheezing, other Cardiovascular: denies: chest pain, palpitations, orthopnea, paroxysmal noc. dyspnea, edema, light headedness, other Gastrointestinal: denies: nausea, vomitting, abdominal pain, diarrhea, constipation, melena, hematochezia, other Genitourinary: denies: dysuria, frequency, incontinence, hematuria, retention, other Musculoskeletal: denies: neck pain, shoulder pain, arm pain, back pain, hand pain, leg pain, foot pain, other Skin: denies: rash, lesions, elli, bruising, other Neurological: reports: confusion (underlying psych problems, currently at baseline. No longer lethargic). denies: weakness, numbness, incoordination, change in speech, seizures, other - Medication Medications: Active Medications Generic Name Dose Route Start Last Admin Trade Name Freq PRN Reason Stop Dose Admin Ceftriaxone Sodium 1 gm/ 100 mls @ 200 mls/hr 01/09/19 03:00 01/09/19 04:03 Sodium Chloride IVPB 100 mls 0300 KHOI Administration Sodium Chloride 1,000 mls @ 75 mls/hr 01/09/19 02:05 01/09/19 04:03 Normal Saline 0.9% IV Not Given .[id number] KHOI Insulin Human Lispro 0 units 01/09/19 02:05 01/09/19 12:28 Humalog SC 4 unit .MODERATE SLIDING SC PRN Administration Moderate Correctional Scale Saccharomyces Boulardii 250 mg 01/09/19 09:00 01/09/19 08:15 Florastor PO 250 mg DAILY KHOI Administration Sodium Chloride 10 ml 01/09/19 09:00 01/09/19 08:16 Flush - Normal Saline IVF Not Given Q12HR KHOI - Exam General Appearance: NAD, awake alert (Alert to person, place and year.) Eye: PERRL, anicteric sclera ENT: normocephalic atraumatic, no oropharyngeal lesions, moist mucosa Neck: supple, symmetric, no lymphadenopathy Neck - other findings: oral mucosa dry Heart: RRR, no murmur, no gallops, no rubs Respiratory: CTAB, no wheezes, no rales, no ronchi, normal chest expansion, no tachypnea Gastrointestinal: soft, non-tender, non-distended, normal bowel sounds Gastrointestinal - other findings: obese Extremities: no edema Skin: normal turgor, no lesions Neurological: normal sensation to touch, no weakness, no new deficit Musculoskeletal: normal tone, normal strength, no muscle wasting Psychiatric: oriented to person, oriented to place Hosp A/P (1) UTI (urinary tract infection) Status: Acute Plan: Patient refusing to have new IV line. Received Rocephin this am. Will change to Omnicef starting tmrw am. Encourage PO fluids. Awaiting UCx. (2) Acute kidney injury superimposed on CKD Code(s): N17.9 - ACUTE KIDNEY FAILURE, UNSPECIFIED; N18.9 - CHRONIC KIDNEY DISEASE, UNSPECIFIED Status: Resolved Plan: Encourage PO intake. Has received IV Fluids, refusing new IV line. Kidney function improving to baseline. (3) Hypertension Code(s): I10 - ESSENTIAL (PRIMARY) HYPERTENSION Status: Chronic Plan: Continue home meds and monitor BP. (4) Diabetes mellitus Code(s): E11.9 - TYPE 2 DIABETES MELLITUS WITHOUT COMPLICATIONS Status: Chronic Plan: Continue home meds and monitor glucose. (5) Bipolar disorder Code(s): F31.9 - BIPOLAR DISORDER, UNSPECIFIED Status: Chronic Qualifiers: Active/Remission status: remission status unspecified Plan: [facility], recently at [facility] and discharge on new meds. Family unable to cope with her at home. - Plan Discussed with Dr. Casey who agrees with plan as above.
[2019-01-09] MEDS ORDERED: Cefdinir 300 MG CAP PO SCH (21:00)
[2019-01-09 21:27] LABS: #Eosinphils 0.1 thou/uL (0.0-0.7); #Lymphocytes 1.2 thou/uL (1.20-3.40); #Monocytes 0.7 thou/uL (0.11-0.59); #Neutrophils 6.1 thou/uL (1.40-6.50); %Basophils 0.5 % (0.0-1.0); %Eosinophils 1.6 % (0.0-10.0); %Lymphocytes 14.5 % (21.0-51.0); %Monocytes 8.5 % (0.0-10.0); %Neutrophils 74.9 % (42.0-75.0); Hemoglobin 11.2 g/dL (12.0-16.0); Mean Corpuscular HGB CONC 34.5 g/dL (32.0-36.0); Mean Corpuscular Volume 89.9 fL (78.0-98.0); Mean Platelet Volume 6.1 fL (7.4-10.4); Platelet Count 251 thou/uL (130-400); Red Blood Cell (RBC) Count 3.62 mill/uL (4.20-5.40); White Blood Cell (WBC) Count 8.1 thou/uL (4.8-10.8)
[2019-01-09 21:47] LABS: Anion Gap 16 mmol/L (10-20); BUN (Urea Nitrogen) 19 mg/dL (9.8-20.1); Calc. Creatinine Clearance 58 mL/min (70-130); Calcium 8.9 mg/dL (7.8-10.44); Carbon Dioxide 23 mmol/L (23-31); Chloride 102 mmol/L (98-107); Estimated GFR-MDRD 41; Glucose 194 mg/dL (80-115); Potassium 3.6 mmol/L (3.5-5.1); Sodium 137 mmol/L (136-145)
[2019-01-10] MEDS: HumaLOG 300 UNITS/3 ML VIAL SC PRN (05:25)
[2019-01-10 08:21] VITALS: TEMP 98.5
[2019-01-10] MEDS ORDERED: Cefdinir 300 MG CAP PO SCH (09:00)
[2019-01-10] MEDS ORDERED: Famotidine 20 MG TAB PO SCH (09:00)
[2019-01-10] MEDS ORDERED: Prevnar 13-Val Conj/PF 0.5 ML SYRINGE IM ONE (09:00)
[2019-01-10] MEDS: Saccharomyces boulardii 250 MG CAP PO SCH (09:30)
[2019-01-10 11:18] VITALS: BP 176/84
[2019-01-10] MEDS ORDERED: Benztropine 1 MG TAB PO SCH ×2 (13:30→21:00)
--- NOTE | 2019-01-10 15:56 | PDOC.EVN ---
Event Note - Event Note Event Note: Discharge summary dictated. #[id number]
[2019-01-10] MEDS ORDERED: Lisinopril 20 MG TAB PO SCH (16:00)
--- NOTE | 2019-01-11 08:24 | DIS ---
DATE OF ADMISSION: 01/09/2019 DATE OF DISCHARGE: 01/10/2019 PRIMARY CARE PHYSICIAN: Dr. Fadumo Cohn DISCHARGE DIAGNOSES: 1. Acute metabolic encephalopathy. 2. Escherichia coli urinary tract infection. 3. Chronic kidney disease stage 3. 4. Acute kidney injury. 5. Diabetes mellitus. 6. Hypertension. 7. Bipolar disorder with psychosis. 8. Chronic diastolic heart failure. 9. Dyslipidemia. 10. Peripheral vascular disease. 11. Ischemic cardiomyopathy. 12. Coronary artery disease, status post coronary artery bypass grafting. 13. Breast cancer, status post chemoradiation and mastectomy, on Arimidex. 14. Obesity. HOSPITAL COURSE: A 68-year-old female with multiple comorbidities including bipolar disorder with psychosis, who was recently discharged from [facility] 3 days prior to admission and was admitted on transfer from Medicine via ER due to altered mental status and possible urinary tract infection. The patient was altered and agitated with some aggressive behavior initially during this hospitalization. She was treated with antibiotics and IV fluid with improvement in mental status. Following discussion with family who reported that they could not take care of her, arrangement was made to discharge the patient to a psychiatric facility for further treatment optimization and rehabilitation before being discharged home. She remained stable and was subsequently discharged to a psychiatric unit. PHYSICAL EXAMINATION: VITAL SIGNS: Temperature 98.5, pulse 100, respiratory rate 20, SpO2 of 94 on room air, blood pressure is 176/84. GENERAL: Elderly female, in no obvious distress. Afebrile. HEENT: Normocephalic, atraumatic. Oral mucosa is moist. CARDIOVASCULAR: Regular rhythm, but tachycardic. Normal heart sounds one and two. RESPIRATORY: Fair air entry bilaterally with few transmitted sounds. No obvious crackle was appreciated. GI: Full, soft, nontender, nondistended, with normal bowel sounds. EXTREMITIES: Grossly normal looking, atraumatic with no obvious edema or erythema. CORE SHAPER: Conscious and alert. Oriented to person, place, and time. Some memory lapses noted. Fine tremor of the hands noted as well. Cranial nerves 2 through 12 are grossly intact. DISCHARGE DISPOSITION: Psychiatric facility. DISCHARGE CONDITION: Improved. DISCHARGE MEDICATION: Please see discharge med rec. FOLLOWUP: With PCP in 2 to 3 weeks of discharge. Job ID: [id number]
[2019-01-11] MEDS ORDERED: Anastrozole 1 MG TAB PO SCH (09:00)
== END 2019-01-10 16:15 | disposition short-term general hospital (02) ==
LOC: ERS 22:07 → T4-A 01-09 01:46
PROVIDERS: ADMIT Internal Medicine; ATTEND Internal Medicine
DX: N39.0 Urinary tract infection, site not specified (principal); B96.20 Unspecified Escherichia coli [E. coli] as the cause of diseases classified elsewhere; G93.41 Metabolic encephalopathy; F31.9 Bipolar disorder, unspecified; F28 Other psychotic disorder not due to a substance or known physiological condition; F41.9 Anxiety disorder, unspecified; I13.0 Hypertensive heart and chronic kidney disease with heart failure and stage 1 through stage 4 chronic kidney disease, or unspecified chronic kidney disease; E11.22 Type 2 diabetes mellitus with diabetic chronic kidney disease; N18.3 Chronic kidney disease, stage 3 (moderate); I50.32 Chronic diastolic (congestive) heart failure; N17.9 Acute kidney failure, unspecified; D63.1 Anemia in chronic kidney disease; E78.5 Hyperlipidemia, unspecified; I25.10 Atherosclerotic heart disease of native coronary artery without angina pectoris; M81.0 Age-related osteoporosis without current pathological fracture; G89.29 Other chronic pain; M54.5 Low back pain; I25.5 Ischemic cardiomyopathy; E66.9 Obesity, unspecified; Z68.35 Body mass index [BMI] 35.0-35.9, adult; Z85.3 Personal history of malignant neoplasm of breast; Z79.811 Long term (current) use of aromatase inhibitors; Z79.899 Other long term (current) drug therapy; Z88.5 Allergy status to narcotic agent; Z95.1 Presence of aortocoronary bypass graft; Z95.810 Presence of automatic (implantable) cardiac defibrillator
CPT/HCPCS: 80048; 82962 ×2; 85025; 96360; 96361 ×3; 96365; 97110; 97116 ×2; 97139; 97530; 99285; G0378 ×4; 36416; 51798; J0696; J3490